=== PATIENT | female | born 1990 | race Caucasian/White ===

== ENCOUNTER → 2017-02-15 | Outpatient (CLI) | payer OTHER ==
[2017-02-15 12:40] LABS: CH 30.4; CHCM 35.5; HCT 41.7 % (34.0-46.0); HDW 2.27; HGB 14.4 gm/dL (11.4-16.0); MCH 29.6 pg (25.0-35.0); MCHC 34.4 g/dL (31.0-37.0); MCV 86.1 fL (80.0-100.0); RBC 4.85 m/uL (3.80-5.40)
[2017-02-15 12:48] LABS: Glucose 98 mg/dL (74-99); Non-African American GFR(MDRD) >60 (>60 ml/min/1.73 sqM)
[2017-02-15 13:20] LABS: Hepatitis B Surface Ag Index 0.05
[2017-02-15 19:20] LABS: Treponemal Ab Non-Reactive (Non-Reactive)
[2017-02-16 05:31] LABS: Toxoplasma Antibody (IgG) <3.0 IU/mL (<7.2)
== END | disposition home or self-care (01) ==
LOC: LABWHC1 11:49
PROVIDERS: ATTEND Obstetrics & Gynecology
DX: O26.811 Pregnancy related exhaustion and fatigue, first trimester (principal); Z3A.00 Weeks of gestation of pregnancy not specified
CPT/HCPCS: 36415; 82565; 82947; 85027; 86762; 86777; 86778; 86780; 86850; 86900; 86901; 87340; 87390

== ENCOUNTER → 2018-05-06 | Outpatient (CLI) | payer OTHER ==
--- NOTE | 2018-05-06 16:21 | XR ---
EXAMINATION TYPE: XR chest 2V DATE OF EXAM: 05/06/2018 COMPARISON: 02/20/2016 HISTORY: Chest pain TECHNIQUE: Frontal and lateral views of the chest are obtained. FINDINGS: There is no focal air space opacity. No evidence for pneumothorax. No pleural effusion. The cardiac silhouette size is within normal limits. The osseous structures are grossly intact. IMPRESSION: 1. No acute cardiopulmonary process.
== END | disposition home or self-care (01) ==
LOC: RADXRYALE 15:28
PROVIDERS: ATTEND Family Medicine
DX: R06.02 Shortness of breath (principal); J45.909 Unspecified asthma, uncomplicated
CPT/HCPCS: 71046

== ENCOUNTER → 2019-08-10 | Outpatient (CLI) | payer OTHER ==
--- NOTE | 2019-08-10 14:34 | US ---
EXAMINATION TYPE: US pelvic complete DATE OF EXAM: 08/10/2019 COMPARISON: NONE CLINICAL HISTORY: D25.9 UTERINE FIBROID. Patient stated uterine fibroids were noted on her OB US TECHNIQUE: Transabdominal (TA). Transabdominal sonographic images of the pelvis were acquired. Date of LMP: 07/21/2019 EXAM MEASUREMENTS: Uterus: 11.8 x 8.5 x 7.5 cm Endometrial Stripe: 1.6 cm Right Ovary: 3.7 x 2.3 x 2.8 cm Left Ovary: 3.4 x 2.6 x 3.5 cm 1. Uterus: anteflexed; multiple uterine probable fibroids imaged with largest in upper myometrium = 6.2 x 6.1 x 5.8cm; exophytic uterine fibroid also seen upper left = 4.3 x 3.5 x 3.0cm; couple of sma ll Nabothian Cysts seen in cervix. 2. Endometrium: small amount of fluid noted within endometrium = 1.5 x 1.4 x 0.6cm 3. Right Ovary: wnl 4. Left Ovary: wnl 5. Bilateral Adnexa: wnl 6. Posterior cul-de-sac: wnl IMPRESSION: 1. Diffusely heterogenous lobulated and enlarged uterus containing multiple probable leiomyomas. The largest measures 6.2 cm. 2. Small amount of fluid within the endometrium could relate to the phase of menses. Endometrial thic kness is upper limits of normal for a premenopausal female.
== END | disposition home or self-care (01) ==
LOC: RADUSWWP 13:27
PROVIDERS: ATTEND Obstetrics & Gynecology
DX: N85.2 Hypertrophy of uterus (principal); D25.9 Leiomyoma of uterus, unspecified
CPT/HCPCS: 76856

== ENCOUNTER 2019-11-04 10:53 | Emergency (ER) | payer OTHER ==
[2019-11-04 11:02] VITALS: RESP 18; TEMP 97.9
--- NOTE | 2019-11-04 11:59 | ED ---
Abdominal Pain HPI - General Chief Complaint: Abdominal Pain Stated Complaint: Abd pain-15 wks pg Time Seen by Provider: 11/04/19 11:32 Source: patient Mode of arrival: ambulatory Limitations: no limitations - History of Present Illness Initial Comments: Patient is a 29-year-old female presenting to the emergency Department with complaints of abdominal pain that started this morning. Patient is currently 15 weeks , . SUPERVISOR FILTRATION is Dr. Hagen although she is seeing a specialist in [place]. Patient states she has history of fibroids which have been growing throughout this so she is currently seeing a specialist to monitor her . Patient states after she woke up this morning and emptied her bladder, she immediately had severe lower mid abdomen pain that made her go onto all fours. Patient rated the pain in 9/10. She states the pain was not moving. States severe pain lasted for a few hours and now has decreased. Patient is still describing pain in the same area but is more tolerable at a 2-3/ 10. Patient denies any vaginal bleeding. She denies recent fever, chills, nausea, vomiting, diarrhea. She denies any history of abdominal surgeries. She denies any chest pain or shortness of breath. She has no other complaints at this time. Upon arrival to the ER, vital signs are stable. - Related Data Home Medications Medication Instructions Recorded Confirmed Aex-Cuar-Mcvqk Acid 1 cap PO DAILY 09/11/17 09/12/17 [-U Capsule (formulary)] Previous Rx's Medication Instructions Recorded Acetaminophen Tab [Tylenol] 650 mg PO Q4HR PRN tab 09/13/17 Ibuprofen [Motrin] 600 mg PO Q6HR PRN #60 tab 09/13/17 Sennosides-Docusate Sodium 2 each PO BID@0800,2000 tab 09/13/17 [Senokot-S] Witch Carmen [Tucks Medicated Pads] 1 each TOPICAL DAILY PRN med..pad 09/13/17 Cephalexin [Keflex] 500 mg PO BID 3 Days #6 cap 11/04/19 Allergies Allergy/AdvReac Type Severity Reaction Status Date / Time albuterol Allergy Rapid Verified 11/04/19 11:02 Heart Rate Review of Systems ROS Statement: Those systems with pertinent positive or pertinent negative responses have been documented in the HPI. ROS Other: All systems not noted in ROS Statement are negative. Past Medical History Past Medical History: No Reported History History of Any Multi-Drug Resistant Organisms: None Reported Past Surgical History: No Surgical Hx Reported Past Anesthesia/Blood Transfusion Reactions: No Reported Reaction Past Psychological History: Anxiety Smoking Status: Never smoker Past Alcohol Use History: None Reported Past Drug Use History: None Reported - Past Family History Mother Additional Family Medical History / Comment(s): Endometriosis General Exam - General Exam Comments Initial Comments: GENERAL: Well-appearing, well-nourished and in no acute distress. HEAD: Atraumatic, normocephalic. EYES: Pupils equal round and reactive to light, extraocular movements intact, sclera anicteric, conjunctiva are normal. ENT: TMs normal, nares patent, oropharynx clear without exudates. Moist mucous membranes. NECK: Normal range of motion, supple without lymphadenopathy or JVD. LUNGS: Breath sounds clear to auscultation bilaterally and equal. No wheezes rales or rhonchi. HEART: Regular rate and rhythm without murmurs, rubs or gallops. ABDOMEN: Soft, nontender, normoactive bowel sounds. No guarding, no rebound. No masses appreciated. : Deferred EXTREMITIES: Normal range of motion, no pitting or edema. No clubbing or cyanosis. NEUROLOGICAL: Cranial nerves II through XII grossly intact. Normal speech, normal gait. PSYCH: Normal mood, normal affect. SKIN: Warm, Dry, normal turgor, no rashes or lesions noted. Limitations: no limitations Course Vital Signs 11/04/19 11/04/19 10:59 13:38 Temperature 97.9 F Pulse Rate 66 50 L Respiratory 18 18 Rate Blood Pressure 102/66 99/59 O2 Sat by Pulse 98 98 Oximetry Medical Decision Making - Medical Decision Making Patient is a 29-year-old female, currently 15 weeks , presenting with lower mid abdominal pain since early this morning. Patient is . SUPERVISOR FILTRATION is Dr. Hagen, and also sees a specialist in [place]. Patient denies any vaginal bleeding. Lab work is unremarkable. Urine shows very mild bacteria. Ultrasound reveals 2 ureter and masses unlikely basis of fibroids. There is a viable IUP approximately 15 weeks, heart rate 152. Patient's pain has been mild during ER stay. I discussed these findings with the patient. She is stable for discharge at this time. She'll follow up with her SUPERVISOR FILTRATION. She'll be given short course of Keflex for asymptomatic bacteremia. She is in agreement with this plan of care. Return parameters were discussed with the patient and she verbalized understanding. Case discussed with Dr. Benítez. - Lab Data Result diagrams: 11/04/19 11:52 11/04/19 11:52 Lab Results 11/04/19 11/04/19 11/04/19 Range/Units 11:52 11:52 11:52 WBC 8.3 (3.8-10.6) k/uL RBC 4.19 (3.80-5.40) m/uL Hgb 11.3 L (11.4-16.0) gm/dL Hct 34.5 (34.0-46.0) % MCV 82.3 (80.0-100.0) fL MCH 27.0 (25.0-35.0) pg MCHC 32.8 (31.0-37.0) g/dL RDW 14.5 (11.5-15.5) % Plt Count 284 (150-450) k/uL Neutrophils % 76 % Lymphocytes % 16 % Monocytes % 6 % Eosinophils % 1 % Basophils % 0 % Neutrophils # 6.3 (1.3-7.7) k/uL Lymphocytes # 1.3 (1.0-4.8) k/uL Monocytes # 0.5 (0-1.0) k/uL Eosinophils # 0.1 (0-0.7) k/uL Basophils # 0.0 (0-0.2) k/uL Sodium 134 L (137-145) mmol/L Potassium 4.1 (3.5-5.1) mmol/L Chloride 105 (98-107) mmol/L Carbon Dioxide 20 L (22-30) mmol/L Anion Gap 9 mmol/L BUN 11 (7-17) mg/dL Creatinine 0.54 (0.52-1.04) mg/dL Est GFR (CKD-EPI)AfAm >90 (>60 ml/min/1.73 sqM) Est GFR (CKD-EPI)NonAf >90 (>60 ml/min/1.73 sqM) Glucose 92 (74-99) mg/dL Calcium 9.2 (8.4-10.2) mg/dL Total Bilirubin 0.3 (0.2-1.3) mg/dL AST 17 (14-36) U/L ALT 11 (4-34) U/L Alkaline Phosphatase 35 L (38-126) U/L Total Protein 6.8 (6.3-8.2) g/dL Albumin 3.8 (3.5-5.0) g/dL Urine Color Colorless Urine Appearance Cloudy H (Clear) Urine pH 7.0 (5.0-8.0) Ur Specific [place] 1.006 (1.001-1.035) Urine Protein Negative (Negative) Urine Glucose (UA) Negative (Negative) Urine Ketones Negative (Negative) Urine Blood Negative (Negative) Urine Nitrite Negative (Negative) Urine Bilirubin Negative (Negative) Urine Urobilinogen <2.0 (<2.0) mg/dL Ur Leukocyte Esterase Negative (Negative) Urine WBC 1 (0-5) /hpf Ur Squamous Epith Cells 8 H (0-4) /hpf Amorphous Sediment Rare H (None) /hpf Urine Bacteria Occasional H (None) /hpf Urine Mucus Rare H (None) /hpf Disposition Clinical Impression: Abdominal pain, Asymptomatic bacteriuria during Disposition: HOME SELF-CARE Condition: Stable Instructions (If sedation given, give patient instructions): Abdominal Pain in (ED) Additional Instructions: Please return to the Emergency Department if symptoms worsen or any other concerns. Follow up with Dr. Hagen as discussed. Take antibiotics as prescribed. Prescriptions: Cephalexin [Keflex] 500 mg PO BID 3 Days #6 cap Is patient prescribed a controlled substance at d/c from ED?: No Referrals: Troy Hylton DO [Primary Care Provider] - 1-2 days Yasemin Hagen DO [Doctor of Osteopathic Medicine] - 1-2 days
[2019-11-04 12:27] LABS: Basophils % (A) 0 %; Eosinophils # (A) 0.1 k/uL (0-0.7); Eosinophils % (A) 1 %; HCT 34.5 % (34.0-46.0); HGB 11.3 gm/dL (11.4-16.0); Lymphocytes # (A) 1.3 k/uL (1.0-4.8); Lymphocytes % (A) 16 %; MCHC 32.8 g/dL (31.0-37.0); MCV 82.3 fL (80.0-100.0); Mean Platelet Volume 7.6; Monocytes # (A) 0.5 k/uL (0-1.0); Monocytes % (A) 6 %; Neutrophils # (A) 6.3 k/uL (1.3-7.7); Neutrophils % (A) 76 %; Platelet Count 284 k/uL (150-450); RBC 4.19 m/uL (3.80-5.40); RDW 14.5 % (11.5-15.5); WBC 8.3 k/uL (3.8-10.6)
[2019-11-04 12:33] LABS: Amorphous Sediment,Urine Rare /hpf; Appearance,Urine Cloudy (Clear); Bacteria,Urine Occasional /hpf; Bilirubin,Urine Negative (Negative); Blood,Urine Negative (Negative); Color,Urine Colorless; Glucose,Urine (UA) Negative (Negative); Ketones,Urine Negative (Negative); Leukocyte Esterase,Urine Negative (Negative); Mucus,Urine Rare /hpf; Nitrite,Urine Negative (Negative); Protein,Urine Negative (Negative); Specific Gravity,Urine 1.006 (1.001-1.035); Squamous Epithelial Cell,Urine 8 /hpf (0-4); Urobilinogen,Urine <2.0 mg/dL (<2.0); WBC,Urine 1 /hpf (0-5)
[2019-11-04 12:36] LABS: ALT 11 U/L (4-34); AST 17 U/L (14-36); African American GFR (CKD) >90 (>60 ml/min/1.73 sqM); Albumin 3.8 g/dL (3.5-5.0); Alkaline Phosphatase 35 U/L (38-126); Anion Gap 9 mmol/L; Blood Urea Nitrogen 11 mg/dL (7-17); Calcium 9.2 mg/dL (8.4-10.2); Carbon Dioxide 20 mmol/L (22-30); Chloride 105 mmol/L (98-107); Glucose 92 mg/dL (74-99); Non-African American GFR(CKD) >90 (>60 ml/min/1.73 sqM); Potassium 4.1 mmol/L (3.5-5.1); Sodium 134 mmol/L (137-145); Total Bilirubin 0.3 mg/dL (0.2-1.3); Total Protein 6.8 g/dL (6.3-8.2)
--- NOTE | 2019-11-04 13:03 | US ---
EXAMINATION TYPE: US OB >= 14 wk fetus DATE OF EXAM: 11/04/2019 COMPARISON: US 08/10/2019 CLINICAL HISTORY: abdominal pain, 15 wks preg TECHNIQUE: Transabdominal (TA) GESTATIONAL AGE / DATING Physician Established: (15 weeks/1 days) EDC: 04/26/2020 Dates by LMP: (15 weeks/1 days) EDC: 04/26/2020 Dates by First Scan: No previous this is first scan ( Dates by Current Scan: (15 weeks/3 days) EDC: 04/24/2020 Beta HCG (if available): Not available at this time SURVEY IUP: Single PLACENTA: Fundal PREVIA: No Previa DILMA: 11.6 cm Normal CERVICAL LENGTH (transabdominal: norm > 3.0cm): 4.1 cm BIOMETRY PRESENTATION: Breech LIE: Longitudinal BPD: 3.1 cm 15 weeks / 6 days HC: 11.6 cm 15 weeks / 5 days AC: 8.7 cm 15 weeks / 0 days FL: 1.7 cm 15 weeks / 1 days ESTIMATED WEIGHT IN GRAMS: 115grams ESTIMATED WEIGHT IN LBS/OZ: 0 lbs. 4 oz. WEIGHT PERCENTAGE BASED ON ESTABLISHED DATES: 36% HC/AC: 1.33 Normal FL/AC: 20% Normal HEART RATE: 152 bpm RHYTHM: Normal Two fibroids visualized, larges measuring 9.8 x 6.0 x 9.2 cm. This previously measured 6.2 x 6.1 x 5 .8cm on 08/10/2019. IMPRESSION: 1. There are 2 uterine masses most likely in the basis of fibroids with the largest measuring 9.8 cm. Previously measured 6.2 cm. 2. Viable intrauterine of approximately 15 weeks 3 days and a heart rate of 152 bpm.
[2019-11-04 13:40] VITALS: BP 99/59; PULSE 50
== END 2019-11-04 13:40 | disposition home or self-care (01) ==
LOC: EC 10:53
DX: O99.89 Other specified diseases and conditions complicating pregnancy, childbirth and the puerperium (principal); R82.71 Bacteriuria; O26.892 Other specified pregnancy related conditions, second trimester; R10.9 Unspecified abdominal pain; Z3A.15 15 weeks gestation of pregnancy; Z88.8 Allergy status to other drugs, medicaments and biological substances
CPT/HCPCS: 36415; 76805; 80053; 81001; 85025; 99284

== ENCOUNTER 2020-04-16 12:45 | Inpatient (IN) | payer OTHER ==
[2020-04-16] MEDS ORDERED: CITRIC ACID-SODIUM CITRATE 15 ML CUP PO ONE (13:08)
[2020-04-16 13:32] LABS: Basophils % (A) 0 %; Eosinophils # (A) 0.1 k/uL (0-0.7); Eosinophils % (A) 1 %; HCT 36.8 % (34.0-46.0); HGB 12.1 gm/dL (11.4-16.0); Lymphocytes # (A) 1.3 k/uL (1.0-4.8); Lymphocytes % (A) 11 %; MCH 27.5 pg (25.0-35.0); MCV 83.5 fL (80.0-100.0); Mean Platelet Volume 6.9; Monocytes # (A) 0.6 k/uL (0-1.0); Monocytes % (A) 5 %; Neutrophils # (A) 9.7 k/uL (1.3-7.7); Neutrophils % (A) 82 %; Platelet Count 347 k/uL (150-450); RBC 4.41 m/uL (3.80-5.40); RDW 14.6 % (11.5-15.5); WBC 11.9 k/uL (3.8-10.6)
[2020-04-16] MEDS ORDERED: ONDANSETRON 4 MG/2 ML VIAL ONE (13:34)
[2020-04-16] MEDS ORDERED: MORPHINE SULFATE (PF) 0.3 MG/0.3 ML SYR ONE (13:34)
[2020-04-16] MEDS ORDERED: OXYTOCIN 10 UNIT/ML 1 ML VIAL ONE (13:34)
[2020-04-16] MEDS ORDERED: KETOROLAC 15 MG/ML 1 ML VIAL ONE (13:34)
[2020-04-16] MEDS ORDERED: PHENYLEPHRINE-0.9% NACL SYG 1 MG/10 ML SYRINGE ONE (13:34)
[2020-04-16] MEDS ORDERED: ONDANSETRON 4 MG/2 ML VIAL IVP PRN (14:27)
[2020-04-16] MEDS ORDERED: ACETAMINOPHEN TAB 325 MG TAB PO PRN (14:27)
[2020-04-16] MEDS ORDERED: METOCLOPRAMIDE 5 MG/ML 2 ML VIAL IVP PRN (14:27)
[2020-04-16] MEDS ORDERED: diphenhydrAMINE 50 MG/ML 1 ML VIAL IVP PRN (14:27)
[2020-04-16] MEDS ORDERED: NALOXONE 0.4 MG/ML 1 ML VIAL IV PRN (14:27)
[2020-04-16] MEDS ORDERED: SIMETHICONE 80 MG CHEWABLE PO PRN (14:27)
[2020-04-16] MEDS ORDERED: diphenhydrAMINE 25 MG CAP PO PRN (14:27)
[2020-04-16] MEDS ORDERED: ZOLPIDEM 5 MG TAB PO PRN (14:27)
[2020-04-16] MEDS ORDERED: LANOLIN CREAM 5 GM TUBE TOPICAL PRN (14:27)
[2020-04-16] MEDS ORDERED: OXYTOCIN 20 UNITS/1000 ML NS 1,000 ML IV SCH (14:30)
--- NOTE | 2020-04-16 14:42 | P.HPOB ---
History of Present Illness H&P Date: 04/16/20 Chief Complaint: Contractions This patient is a pleasant 29-year-old 2 para 1 female estimated date of confinement 04/26/2020 estimated gestational age 38-3/7 weeks who began having contractions earlier today presented to labor and delivery in active labor. Patient's is complicated by large uterine fibroids and history of prior fourth degree laceration. She has discussed route of delivery with her primary wet plant operator, Dr. Hagen, and they have made the decision to proceed with section for delivery. Patient was evaluated by maternal medicine during this as well. Patient was scheduled for a primary section next week. Patient is now 7 cm dilated in active labor. I did rediscuss route of delivery and she wishes to proceed with section Review of Systems Genitourinary: Reports Menstruation: Reports amenorrhea Past Medical History Additional Past Medical History / Comment(s): Uterine fibroids; previous vaginal delivery complicated by fourth degree laceration History of Any Multi-Drug Resistant Organisms: None Reported Past Surgical History: No Surgical Hx Reported Past Anesthesia/Blood Transfusion Reactions: No Reported Reaction Past Psychological History: Anxiety Past Alcohol Use History: None Reported Past Drug Use History: None Reported - Past Family History Mother Family Medical History: Coronary Artery Disease (CAD), Diabetes Mellitus Additional Family Medical History / Comment(s): Endometriosis Medications and Allergies Home Medications Medication Instructions Recorded Confirmed Type Qdm-Kemy-Bxcvq Acid 1 cap PO DAILY 09/11/17 09/12/17 History [-U Capsule (formulary)] Acetaminophen Tab [Tylenol] 650 mg PO Q4HR PRN tab 09/13/17 Rx Ibuprofen [Motrin] 600 mg PO Q6HR PRN #60 tab 09/13/17 Rx Sennosides-Docusate Sodium 2 each PO BID@0800,2000 tab 09/13/17 Rx [Senokot-S] witch Evelyn [Tucks Medicated Pads] 1 each TOPICAL DAILY PRN med..pad 09/13/17 Rx Cephalexin [Keflex] 500 mg PO BID 3 Days #6 cap 11/04/19 Rx Allergies Allergy/AdvReac Type Severity Reaction Status Date / Time albuterol AdvReac Rapid Verified 04/16/20 13:07 Heart Rate Exam Intake and Output 04/15/20 04/16/20 04/16/20 22:59 06:59 14:59 Other: Weight 98.883 kg - OBG Physical Exam Abdomen: bowel sounds normal, no diffuse tenderness, no bruit present, no guarding noted, no hepatomegaly, no splenomegaly, no mass Vulva: both: normal Cervix: no lesion (On admission patient's cervix is 6-7 cm dilated), no discharge Uterus: enlarged Results blood work shows she is A positive, rubella immune, RPR is nonreactive, hepatitis B is negative, HIV is nonreactive, B strep was negative, ultrasounds showed normal anatomy. She does have a large 9+ centimeter posterior fibroid and also a fibroid on the left side that's about 3-4 cm. Result Diagrams: 04/16/20 13:15 Abnormal Lab Results - Last 24 Hours (Table) 04/16/20 Range/Units 13:15 WBC 11.9 H (3.8-10.6) k/uL Neutrophils # 9.7 H (1.3-7.7) k/uL Assessment and Plan Assessment: This is a pleasant 29-year-old 2 para 1 female 38-3/7 weeks gestation in active labor with large uterine fibroids and previous fourth degree laceration requesting section for delivery. Plan is immediate delivery by primary section. Prior to the surgery I did discuss with the patient and her the surgery and risks. She understands all surgery has risks of infection or bleeding. She understands due to her fibroids she is at increased risk of bleeding. She also understands risk of injury to bowel bladder, or other organs. All the patient's questions are answered written consent is obtained. (1) 38 weeks gestation of Current Visit: Yes Status: Acute Code(s): Z3A.38 - 38 WEEKS GESTATION OF SNOMED Code(s): 13718017 (2) Active labor Current Visit: Yes Status: Acute Code(s): OAW1356 - SNOMED Code(s): 780080708 (3) delivery due to previous obstetrical trauma, delivered, current hospitalization Current Visit: Yes Status: Acute Code(s): O34.90 - MATERNAL CARE FOR ABNLT OF PELVIC ORGAN, UNSP, UNSP TRI SNOMED Code(s): 901452483
--- NOTE | 2020-04-16 14:50 | P.OP ---
Date of Procedure: 04/16/20 Preoperative Diagnosis: #1: 38-3/7 week . #2: Large uterine fibroids/multiple. #3: Previous fourth degree laceration requesting section for delivery. #4: Active labor Postoperative Diagnosis: Same Procedure(s) Performed: Primary low transverse section Anesthesia: spinal Surgeon: Kavin Lund [employer] #1: Michelle Clark Estimated Blood Loss (ml): 1,000 Pathology: other (Placenta) Condition: stable Disposition: observation Indications for Procedure: Please see dictated H&P for intimate details of this patient's admission. Brief summary this is a pleasant 29-year-old 2 para 1 female 38-1/2 weeks gestation with previous fourth degree laceration requesting section for delivery. Patient also is known large uterine fibroids. Patient I and her have discussed the surgery and risks and risks of infection, bleeding, possible injury to bowel, bladder, vessels, and/or other organs. All the patient's questions are answered written consent is obtained. Operative Findings: This patient had a vigorous viable female Apgars were 8 and 9 delivery time is 1348 hrs. Infant has spontaneous respirations and good cry and grossly appears normal. Patient had a very large 10 cm posterior fibroid. She also had what appeared to be a 3-4 cm left lateral fibroid. In the anterior lower uterine segment. I was unable to externalize the uterus and completely visualize the rest of her fibroids however there were several other palpable fibroids on the posterior fundal area. Her fallopian tubes and ovaries appeared normal Description of Procedure: This patient has a Pete catheter placed to straight drain. She is subsequently taken to the operating room where she sat up and spinal anesthetic is administered without incident. With an adequate level of anesthesia she has abdominal prep and drape. Scalpels and taken a Pfannenstiel skin incision is then made. A second scalpel is taken down the fascia and the fascia scored with scalpel. Fascial incision extended bilaterally using the Marion scissors. Fascia is then dissected sharply off the rectus muscles. Rectus muscles are the peritoneum was identified and entered sharply. The peritoneal incision is extended superior and inferior without difficulty. Bladder blade is then placed. At this time there is noted to be a fibroid in the lower uterine segment of the left side. Bladder peritoneum was sharply dissected off the lower uterine segment. I then selected area of the lower uterine segment that appears to be free of fibroids and make an incision with the scalpel. This is a low transverse uterine incision. Hemostat is then used to enter the uterine cavity lightly for clear fluid. Incision is then extended bluntly. Infant's head is then gently guided through the incision with fundal pressure. Mouth and nares are bulb suctioned. There is no evidence of a nuchal cord. With gentle fundal pressure we then deliver the rest this 's body. This is a vigorous viable female Apgars are 8 and 9 delivery time is 1348 hrs. After delivery of the the umbilical cords doubly clamped and cut appears to be trivascular. The placenta is then manually extracted intact. The placenta is up in the fundal region and anteriorly. There is a large posterior fibroid. There is also a fibroid on the left lower uterine segment side as well. I did try to externalize the uterus however due to its large size this was not able to be done. With additional retractors we were easily able to visualize the lower uterine uterine segment and the incision and this was demarcated with Huffman clamps. Excess tissue is removed from the uterine cavity. Uterine incision is then closed using 0 Vicryl running locked fashion. There is an area of oozing on the left side where there is a fibroid implanted over the incision. I did put several [id number] stitches of 0 Vicryl there for excellent hemostasis. With this completed the tubes and ovaries were inspected. Excess fluid was removed from the abdomen and pelvis. Prolonged observation shows good hemostasis. The parietal peritoneum was then identified and closed using 0 Vicryl running fashion. Rectus muscles reapproximated in 0 Vicryl interrupted fashion. Fascial incision is then closed using 0 PDS. Fascial incision is intact and hemostatic. Subcutaneous tissues and closed using a 3-0 Vicryl. Skin is and closed using rios. All counts are correct 3. There are no complications. Infant and mother will be watched in the birthing suite.
[2020-04-16] MEDS: LACTATED RINGERS 1,000 ML IV SCH (18:12)
[2020-04-16] MEDS: KETOROLAC 15 MG/ML 1 ML VIAL IVP PRN (19:56)
[2020-04-16] MEDS: SENNOSIDES-DOCUSATE SODIUM 1 EACH TAB PO SCH (20:20)
[2020-04-17] MEDS: LACTATED RINGERS 1,000 ML IV SCH ×2 (02:04→06:45)
[2020-04-17] MEDS: KETOROLAC 15 MG/ML 1 ML VIAL IVP PRN ×2 (02:05→07:56)
[2020-04-17 07:28] LABS: Basophils % (A) 0 %; Eosinophils % (A) 0 %; HCT 26.4 % (34.0-46.0); Lymphocytes # (A) 0.9 k/uL (1.0-4.8); Lymphocytes % (A) 7 %; MCH 26.6 pg (25.0-35.0); MCHC 31.4 g/dL (31.0-37.0); MCV 84.7 fL (80.0-100.0); Mean Platelet Volume 7.2; Monocytes # (A) 0.8 k/uL (0-1.0); Monocytes % (A) 6 %; Neutrophils # (A) 11.6 k/uL (1.3-7.7); Neutrophils % (A) 86 %; Platelet Count 266 k/uL (150-450); RBC 3.12 m/uL (3.80-5.40); WBC 13.4 k/uL (3.8-10.6)
[2020-04-17] MEDS: SENNOSIDES-DOCUSATE SODIUM 1 EACH TAB PO SCH ×2 (07:55→18:58)
[2020-04-17 08:10] LABS: HGB 8.3 gm/dL (11.4-16.0)
--- NOTE | 2020-04-17 08:17 | P.PNOBGPC ---
Subjective - Subjective Patient reports: Reports appetite normal, Reports voiding normally, Reports pain well controlled, Reports ambulating normally : doing well Objective - Vital Signs Latest vital signs: Vital Signs Temp Pulse Resp BP Pulse Ox 04/17/20 08:00 98.2 F 78 16 115/60 98 04/17/20 04:00 98.3 F 73 16 121/69 97 04/17/20 00:00 98.2 F 69 16 98/57 95 04/16/20 21:39 70 16 103/64 97 04/16/20 20:00 97.8 F 75 16 95/55 97 04/16/20 16:20 96.1 F L 67 16 108/52 04/16/20 15:50 66 16 102/57 99 04/16/20 15:20 72 16 105/52 96 04/16/20 15:05 70 16 108/55 97 04/16/20 14:50 69 16 100/53 100 04/16/20 14:35 74 16 104/50 98 04/16/20 14:20 57 L 16 124/56 100 04/16/20 13:19 97.7 F 78 18 129/77 100 Intake and Output 04/16/20 04/17/20 04/17/20 22:59 06:59 14:59 Output Total 550 300 600 Balance -550 -300 -600 Output: Urine 550 300 600 Other: # Voids 1 1 - Exam Lungs: bilateral: normal Chest: Normal S1, Normal S2 Extremities: Present: normal Abdomen: Present: normal appearance, soft. Absent: distention, tenderness Incision: Present: normal, dry, intact Uterus: Present: normal, firm - Labs Labs: Abnormal Lab Results - Last 24 Hours (Table) 04/16/20 04/17/20 Range/Units 13:15 06:57 WBC 11.9 H 13.4 H (3.8-10.6) k/uL RBC 3.12 L (3.80-5.40) m/uL Hgb 8.3 L D (11.4-16.0) gm/dL Hct 26.4 L (34.0-46.0) % Neutrophils # 9.7 H 11.6 H (1.3-7.7) k/uL Lymphocytes # 0.9 L (1.0-4.8) k/uL Assessment and Plan Assessment: Post operative day #1. Patient is resting without complaints. Vital signs are stable and she is afebrile. Incision is intact and dry. Patient is having normal lochia. CBC this morning shows her hemoglobin to be 8.3. Patient was dizzy last evening but this has gone away. She is urinating without difficulty and she is ambulating with assistance. Patient is tolerating a clear diet. My impression this is a normal postoperative course, complicated by postoperative anemia which is expected due to the patient's fibroids noted at the time of surgery. Patient this time is for the most part feeling well therefore we'll just begin iron therapy. I am going to repeat a CBC tomorrow but it appears that she definitely has stabilized. Plan we'll allow the patient to shower today and advanced to regular diet. Continue routine postoperative care. (1) 38 weeks gestation of Current Visit: Yes Status: Acute Code(s): Z3A.38 - 38 WEEKS GESTATION OF SNOMED Code(s): 40504725 (2) Active labor Current Visit: Yes Status: Acute Code(s): JKL0104 - SNOMED Code(s): 459916430 (3) delivery due to previous obstetrical trauma, delivered, current hospitalization Current Visit: Yes Status: Acute Code(s): O34.90 - MATERNAL CARE FOR ABNLT OF PELVIC ORGAN, UNSP, UNSP TRI SNOMED Code(s): 883583016
[2020-04-17] MEDS: IRON AG/C/B12/CA/SUC.ACID/STOM 1 EACH TAB PO SCH (08:58)
[2020-04-17] MEDS: IBUPROFEN 600 MG TAB PO PRN ×2 (14:07→21:27)
[2020-04-17] MEDS: HYDROcodone/APAP 5-325MG 1 EACH TAB PO PRN (18:57)
[2020-04-17] MEDS ORDERED: SERTRALINE 50 MG TAB PO SCH (21:00)
[2020-04-18] MEDS: HYDROcodone/APAP 5-325MG 1 EACH TAB PO PRN ×2 (00:04→06:07)
[2020-04-18] MEDS: IBUPROFEN 600 MG TAB PO PRN ×2 (03:57→09:53)
[2020-04-18 07:20] LABS: Basophils % (A) 0 %; Eosinophils # (A) 0.1 k/uL (0-0.7); Eosinophils % (A) 1 %; HGB 8.8 gm/dL (11.4-16.0); Lymphocytes # (A) 1.2 k/uL (1.0-4.8); Lymphocytes % (A) 9 %; MCH 26.9 pg (25.0-35.0); MCHC 32.6 g/dL (31.0-37.0); MCV 82.4 fL (80.0-100.0); Mean Platelet Volume 8.4; Monocytes # (A) 0.9 k/uL (0-1.0); Monocytes % (A) 6 %; Neutrophils # (A) 11.5 k/uL (1.3-7.7); Neutrophils % (A) 83 %; Platelet Count 295 k/uL (150-450); RBC 3.28 m/uL (3.80-5.40); RDW 15.2 % (11.5-15.5); WBC 13.9 k/uL (3.8-10.6)
[2020-04-18] MEDS: LACTATED RINGERS 1,000 ML IV SCH (07:29)
[2020-04-18] MEDS: SENNOSIDES-DOCUSATE SODIUM 1 EACH TAB PO SCH (07:45)
[2020-04-18] MEDS: IRON AG/C/B12/CA/SUC.ACID/STOM 1 EACH TAB PO SCH (07:45)
[2020-04-18 07:57] VITALS: BP 118/69; PULSE 82; RESP 18; TEMP 98.2
--- NOTE | 2020-04-18 09:20 | P.DS ---
Providers Date of admission: 04/16/20 13:08 Expected date of discharge: 04/18/20 Attending physician: Yasemin Hagen Primary care physician: Stated None Hospital Course: 30-year-old female 2 para 1 at 38-3/7 weeks who presented in active labor and underwent a primary low transverse section with delivery of a viable female on 04/16/2020 with scores of 8 at 1 minute and 9 at 5 minutes and weight of 6 lbs. 9 oz. The reason for her was a history of a fourth degree laceration and large uterine fibroids. Postoperatively she did have a drop in her hemoglobin that was determined to be stable by postoperative day #2. She has been ambulating without difficulty. She is passing flatus but no bowel movement yet. Lochia is very minimal. She is breast-feeding. Vital signs are stable. Abdomen is soft with fundus firm and nontender. Extremities show negative Homans. Impression is status post right Kimberley low transverse section postoperative day #2. Plan is to discharge home today. Routine postoperative and instructions are given. She will be given a prescription for ibuprofen and [place]. She has signed a opioid start talking Cha has been counseled regarding proper opioid use. She is advised follow-up in the office in approximately 1 week. She is advised to call the office if she has any further questions or concerns prior to her appointment time. She does have a breast pump at home. Procedures: Primary low transverse section on 04/16/2020. Patient Condition at Discharge: Stable Plan - Discharge Summary New Discharge Prescriptions: New Ibuprofen [Motrin] 600 mg PO Q6HR PRN #60 tab PRN Reason: Mild Pain Or Fever >= 100.5 Iron Ag/C/B12/Ca/Suc.acid/Stom [Multigen] 1 each PO DAILY tab HYDROcodone/APAP 5-325MG [[place] 5-325] 1 each PO Q4HR PRN #28 tab PRN Reason: Moderate Pain Continue Ncr-Mtax-Qipva Acid [-U Capsule (formulary)] 1 cap PO DAILY Acetaminophen Tab [Tylenol] 650 mg PO Q4HR PRN tab PRN Reason: Mild Pain Or Fever >= 100.5 No Action Ibuprofen [Motrin] 600 mg PO Q6HR PRN #60 tab PRN Reason: Mild Pain Or Fever >= 100.5 Sennosides-Docusate Sodium [Senokot-S] 2 each PO BID@0800,2000 tab witch Evelyn [Tucks Medicated Pads] 1 each TOPICAL DAILY PRN med..pad PRN Reason: Perineal Discomfort Discharge Medication List Qdg-Akev-Szwzs Acid [-U Capsule (formulary)] 1 cap PO DAILY 09/11/17 [History] Acetaminophen Tab [Tylenol] 650 mg PO Q4HR PRN tab 09/13/17 [Rx] Ibuprofen [Motrin] 600 mg PO Q6HR PRN #60 tab 09/13/17 [Rx] Sennosides-Docusate Sodium [Senokot-S] 2 each PO BID@0800,2000 tab 09/13/17 [Rx] witch Evelyn [Tucks Medicated Pads] 1 each TOPICAL DAILY PRN med..pad 09/13/17 [Rx] HYDROcodone/APAP 5-325MG [[place] 5-325] 1 each PO Q4HR PRN #28 tab 04/18/20 [Rx] Ibuprofen [Motrin] 600 mg PO Q6HR PRN #60 tab 04/18/20 [Rx] Iron Ag/C/B12/Ca/Suc.acid/Stom [Multigen] 1 each PO DAILY tab 04/18/20 [Rx] Follow up Appointment(s)/Referral(s): Yasemin Hagen DO [Doctor of Osteopathic Medicine] - 1 Week Activity/Diet/Wound Care/Special Instructions: Instructions 1. Do not begin any exercise program for 3 weeks. 2. Do not resume sexual relations for 3 weeks or longer if uncomfortable. 3. You may take tub baths or showers at any time. 4. You may use tampons if desired after 3 weeks. 5. Keep the area of episiotomy (stitches) clean and dry. 6. If you are not nursing, wear a good fitting, supportive bra during the day and limit fluid intake for at least 1 week to prevent breast engorgement. 7. Call the office, [phone], within the next week to make appointment for your 6 week checkup if it has not already been made. 8. Report any of the following occurrences to the doctor promptly: a. Heavy, excessive bleeding b. Chills, fever c. Burning or frequency of urination d. Pain or redness and breasts if nursing e. Increasing pain or swelling in episiotomy (stitches). In addition to the above instructions, the following additional should be followed: 1. No heavy lifting or straining (exercising) until after 6 week checkup. 2. Keep abdominal incision clean and dry: You may wear a dressing if more comfortable. 3. Make office appointment for 10 days after going home or as instructed by her doctor. Discharge Disposition: HOME SELF-CARE
== END 2020-04-18 10:45 | disposition home or self-care (01) | DRG 788 ==
LOC: FBPOP 12:45 → 4FBP 13:08
PROVIDERS: ADMIT Obstetrics & Gynecology; ATTEND Obstetrics & Gynecology
PROC: 10D00Z1 Extraction of Products of Conception, Low, Open Approach (ICD-10-PCS; principal; 2020-04-16 13:45)
DX: O34.13 Maternal care for benign tumor of corpus uteri, third trimester (principal); D25.9 Leiomyoma of uterus, unspecified; O99.02 Anemia complicating childbirth; D64.9 Anemia, unspecified; R42 Dizziness and giddiness; O75.89 Other specified complications of labor and delivery; Z37.0 Single live birth; Z3A.38 38 weeks gestation of pregnancy; Z87.828 Personal history of other (healed) physical injury and trauma; Z79.899 Other long term (current) drug therapy; Z88.8 Allergy status to other drugs, medicaments and biological substances; Z83.3 Family history of diabetes mellitus; Z82.49 Family history of ischemic heart disease and other diseases of the circulatory system; Z84.2 Family history of other diseases of the genitourinary system
CPT/HCPCS: 59025; 85025; 86850; 86900; 86901; 99213

== ENCOUNTER 2020-05-31 15:20 | Observation (INO) | payer OTHER ==
[2020-05-31] MEDS ORDERED: HYDROcodone/APAP 5-325MG 1 EACH TAB PO STA (16:07)
[2020-05-31] MEDS ORDERED: SODIUM CHLORIDE 0.9% 1,000 ML IV ONE (16:07)
--- NOTE | 2020-05-31 16:33 | ED ---
Abdominal Pain HPI - General Chief Complaint: Abdominal Pain Stated Complaint: Pelvic Pain 6 weeks Time Seen by Provider: 05/31/20 15:25 Source: patient Mode of arrival: wheelchair Limitations: no limitations - History of Present Illness Initial Comments: Patient is a 30-year-old female who is approximately 6 weeks . She had a performed by Dr. Hagen on April 16. States that after her delivery she had some vaginal bleeding and discharge with a foul order. She saw Dr. Hagen placed her on antibiotics approximately 4-5 weeks ago. She did finish the course. States that she has had persistent brown discharge which appeared to improve however 3 days ago became heavier and associated with suprapubic cramping. Also admits to a foul order. Denies concern for sexually transmitted infection. No dysuria, hematuria or difficult voiding. Past bowel movement was this morning and was normal in color and consistency. Denies diarrhea, melenic stools or hematochezia. Patient has a history of uterine fibroids however states that she had normal mental cycles previous to this , one a month with only mild pain. She denies any nausea or vomiting. No fevers or chills. She did call Dr. Hagen office who placed her on a course of flagyl starting yesterday. Pain became so severe that the patient decided to come to the ER for evaluation - Related Data Home Medications Medication Instructions Recorded Confirmed Blu-Clhf-Ceohg Acid 1 cap PO DAILY 09/11/17 05/31/20 [-U Capsule (formulary)] Acetaminophen [Tylenol] 1,000 mg PO ONCE 05/31/20 05/31/20 Previous Rx's Medication Instructions Recorded Amoxic-Pot Clav 875-125Mg 1 tab PO BID 10 Days #20 tab 06/02/20 [Augmentin 875-125] HYDROcodone/APAP 5-325MG [[place] 1 each PO Q4HR PRN #10 tab 06/02/20 5-325] Sertraline [Zoloft] 50 mg PO HS tab 06/02/20 metroNIDAZOLE [Flagyl] 500 mg PO Q12H tab 06/02/20 Allergies Allergy/AdvReac Type Severity Reaction Status Date / Time albuterol AdvReac Rapid Verified 05/31/20 17:45 Heart Rate Review of Systems ROS Statement: Those systems with pertinent positive or pertinent negative responses have been documented in the HPI. ROS Other: All systems not noted in ROS Statement are negative. Past Medical History Past Medical History: No Reported History Additional Past Medical History / Comment(s): Uterine fibroids; previous vagin al delivery complicated by fourth degree laceration History of Any Multi-Drug Resistant Organisms: None Reported Past Surgical History: No Surgical Hx Reported Past Anesthesia/Blood Transfusion Reactions: No Reported Reaction Past Psychological History: Anxiety Smoking Status: Never smoker Past Alcohol Use History: None Reported Past Drug Use History: None Reported - Past Family History Brother(s) Family Medical History: Asthma Additional Family Medical History / Comment(s): 2 years ago General Exam Limitations: no limitations General appearance: alert, in no apparent distress Head exam: Present: atraumatic, normocephalic, normal inspection Eye exam: Present: normal appearance, PERRL, EOMI. Absent: scleral icterus, conjunctival injection, periorbital swelling ENT exam: Present: normal exam, mucous membranes moist Neck exam: Present: normal inspection. Absent: tenderness, meningismus, lymphadenopathy Respiratory exam: Present: normal lung sounds bilaterally. Absent: respiratory distress, wheezes, rales, rhonchi, stridor GI/Abdominal exam: Present: tenderness (suprapubic). Absent: guarding, rebound External exam: Absent: erythema, swelling Speculum exam: Present: vaginal discharge, other (area of cervix identified which reveals dusky, ragged tissue. Normal cervical tissue not identified. No retained foreign bodies. No vaginal bleeding) Course Vital Signs 05/31/20 05/31/20 05/31/20 15:25 17:52 20:00 Temperature 98.4 F Pulse Rate 90 61 64 Respiratory 18 18 18 Rate Blood Pressure 151/77 122/75 125/80 O2 Sat by Pulse 98 97 97 Oximetry - Reevaluation(s) Reevaluation #1: Spoke with Dr. Langford who is coming in to see the patient 05/31/20 18:37 Medical Decision Making - Medical Decision Making Upon arrival patient was placed into room 21. A thorough history and physical exam was performed. Peripheral IV was obtained. Patient was given a liter of saline followed by 100 mL/h. She was given [place] 5 for pain control as well as a dose of Zofran. Laboratory studies were conducted an ultrasound was performed. Patient was given a dose of Zosyn. Laboratory studies were reviewed and demonstrated a white count 13.9. Urinalysis is grossly positive for infection. 29 red blood cells, 109 white blood cells and many white blood cell clumps. Pelvic ultrasound demonstrates endometrium difficult to evaluate because of multiple fibroids. Minimal complex fluid consistent with blood clot in the endometrial cavity. No adnexal mass. No evidence of ovarian torsion. Pelvic exam was performed and demonstrates abnormal, dusky tissue adjacent to the patient's cervix. It is difficult to visualize the patient's cervix. Because of this I did call discuss the case with Dr. Langford. He does present to the emergency department and evaluates the patient himself. He does agree to antibiotics and pain control. Patient will be made nothing by mouth at midnight for possible D&C tomorrow. Patient is updated in regards to her care and agrees to treatment plan. Patient is currently awaiting a bed on the floor - Lab Data Result diagrams: 06/01/20 06:37 06/01/20 06:37 Lab Results 05/31/20 05/31/20 05/31/20 Range/Units 16:13 16:13 16:13 WBC 13.9 H (3.8-10.6) k/uL RBC 4.46 (3.80-5.40) m/uL Hgb 11.6 (11.4-16.0) gm/dL Hct 35.1 (34.0-46.0) % MCV 78.7 L (80.0-100.0) fL MCH 26.0 (25.0-35.0) pg MCHC 33.0 (31.0-37.0) g/dL RDW 14.6 (11.5-15.5) % Plt Count 431 (150-450) k/uL MPV 6.7 Neutrophils % 81 % Lymphocytes % 9 % Monocytes % 7 % Eosinophils % 2 % Basophils % 0 % Neutrophils # 11.3 H (1.3-7.7) k/uL Lymphocytes # 1.2 (1.0-4.8) k/uL Monocytes # 1.0 (0-1.0) k/uL Eosinophils # 0.3 (0-0.7) k/uL Basophils # 0.1 (0-0.2) k/uL PT 9.8 (9.0-12.0) sec INR 0.9 (<1.2) APTT 24.7 (22.0-30.0) sec Sodium (137-145) mmol/L Potassium (3.5-5.1) mmol/L Chloride (98-107) mmol/L Carbon Dioxide (22-30) mmol/L Anion Gap mmol/L BUN (7-17) mg/dL Creatinine (0.52-1.04) mg/dL Est GFR (CKD-EPI)AfAm (>60 ml/min/1.73 sqM) Est GFR (CKD-EPI)NonAf (>60 ml/min/1.73 sqM) Glucose (74-99) mg/dL Calcium (8.4-10.2) mg/dL Total Bilirubin (0.2-1.3) mg/dL AST (14-36) U/L ALT (4-34) U/L Alkaline Phosphatase (38-126) U/L Total Protein (6.3-8.2) g/dL Albumin (3.5-5.0) g/dL Urine Color Light Yellow Urine Appearance Cloudy H (Clear) Urine pH 6.0 (5.0-8.0) Ur Specific [place] 1.013 (1.001-1.035) Urine Protein Negative (Negative) Urine Glucose (UA) Negative (Negative) Urine Ketones Negative (Negative) Urine Blood Large H (Negative) Urine Nitrite Negative (Negative) Urine Bilirubin Negative (Negative) Urine Urobilinogen <2.0 (<2.0) mg/dL Ur Leukocyte Esterase Large H (Negative) Urine RBC 29 H (0-5) /hpf Urine WBC 109 H (0-5) /hpf Urine WBC Clumps Many H (None) /hpf Ur Squamous Epith Cells <1 (0-4) /hpf Urine Bacteria Rare H (None) /hpf Urine Mucus Rare H (None) /hpf Urine HCG, Qual (Not Detectd) Chlamydia Source Chlamydia DNA (PCR) (Neg,Equiv) N. gonorrhoeae Source N.gonorrhoeae DNA Probe (Neg,Equiv) Trichomonas Ag (Rapid) (Negative) 05/31/20 05/31/20 05/31/20 Range/Units 16:13 16:13 16:13 WBC (3.8-10.6) k/uL RBC (3.80-5.40) m/uL Hgb (11.4-16.0) gm/dL Hct (34.0-46.0) % MCV (80.0-100.0) fL MCH (25.0-35.0) pg MCHC (31.0-37.0) g/dL RDW (11.5-15.5) % Plt Count (150-450) k/uL MPV Neutrophils % % Lymphocytes % % Monocytes % % Eosinophils % % Basophils % % Neutrophils # (1.3-7.7) k/uL Lymphocytes # (1.0-4.8) k/uL Monocytes # (0-1.0) k/uL Eosinophils # (0-0.7) k/uL Basophils # (0-0.2) k/uL PT (9.0-12.0) sec INR (<1.2) APTT (22.0-30.0) sec Sodium 138 (137-145) mmol/L Potassium 4.2 (3.5-5.1) mmol/L Chloride 106 (98-107) mmol/L Carbon Dioxide 25 (22-30) mmol/L Anion Gap 7 mmol/L BUN 13 (7-17) mg/dL Creatinine 0.74 (0.52-1.04) mg/dL Est GFR (CKD-EPI)AfAm >90 (>60 ml/min/1.73 sqM) Est GFR (CKD-EPI)NonAf >90 (>60 ml/min/1.73 sqM) Glucose 105 H (74-99) mg/dL Calcium 9.8 (8.4-10.2) mg/dL Total Bilirubin 0.4 (0.2-1.3) mg/dL AST 28 (14-36) U/L ALT 24 (4-34) U/L Alkaline Phosphatase 88 (38-126) U/L Total Protein 7.6 (6.3-8.2) g/dL Albumin 4.3 (3.5-5.0) g/dL Urine Color Urine Appearance (Clear) Urine pH (5.0-8.0) Ur Specific [place] (1.001-1.035) Urine Protein (Negative) Urine Glucose (UA) (Negative) Urine Ketones (Negative) Urine Blood (Negative) Urine Nitrite (Negative) Urine Bilirubin (Negative) Urine Urobilinogen (<2.0) mg/dL Ur Leukocyte Esterase (Negative) Urine RBC (0-5) /hpf Urine WBC (0-5) /hpf Urine WBC Clumps (None) /hpf Ur Squamous Epith Cells (0-4) /hpf Urine Bacteria (None) /hpf Urine Mucus (None) /hpf Urine HCG, Qual Not Detected (Not Detectd) Chlamydia Source Chlamydia DNA (PCR) (Neg,Equiv) N. gonorrhoeae Source N.gonorrhoeae DNA Probe (Neg,Equiv) Trichomonas Ag (Rapid) Negative (Negative) 05/31/20 Range/Units 16:13 WBC (3.8-10.6) k/uL RBC (3.80-5.40) m/uL Hgb (11.4-16.0) gm/dL Hct (34.0-46.0) % MCV (80.0-100.0) fL MCH (25.0-35.0) pg MCHC (31.0-37.0) g/dL RDW (11.5-15.5) % Plt Count (150-450) k/uL MPV Neutrophils % % Lymphocytes % % Monocytes % % Eosinophils % % Basophils % % Neutrophils # (1.3-7.7) k/uL Lymphocytes # (1.0-4.8) k/uL Monocytes # (0-1.0) k/uL Eosinophils # (0-0.7) k/uL Basophils # (0-0.2) k/uL PT (9.0-12.0) sec INR (<1.2) APTT (22.0-30.0) sec Sodium (137-145) mmol/L Potassium (3.5-5.1) mmol/L Chloride (98-107) mmol/L Carbon Dioxide (22-30) mmol/L Anion Gap mmol/L BUN (7-17) mg/dL Creatinine (0.52-1.04) mg/dL Est GFR (CKD-EPI)AfAm (>60 ml/min/1.73 sqM) Est GFR (CKD-EPI)NonAf (>60 ml/min/1.73 sqM) Glucose (74-99) mg/dL Calcium (8.4-10.2) mg/dL Total Bilirubin (0.2-1.3) mg/dL AST (14-36) U/L ALT (4-34) U/L Alkaline Phosphatase (38-126) U/L Total Protein (6.3-8.2) g/dL Albumin (3.5-5.0) g/dL Urine Color Urine Appearance (Clear) Urine pH (5.0-8.0) Ur Specific [place] (1.001-1.035) Urine Protein (Negative) Urine Glucose (UA) (Negative) Urine Ketones (Negative) Urine Blood (Negative) Urine Nitrite (Negative) Urine Bilirubin (Negative) Urine Urobilinogen (<2.0) mg/dL Ur Leukocyte Esterase (Negative) Urine RBC (0-5) /hpf Urine WBC (0-5) /hpf Urine WBC Clumps (None) /hpf Ur Squamous Epith Cells (0-4) /hpf Urine Bacteria (None) /hpf Urine Mucus (None) /hpf Urine HCG, Qual (Not Detectd) Chlamydia Source Vagina Chlamydia DNA (PCR) Negative (Neg,Equiv) N. gonorrhoeae Source Vagina N.gonorrhoeae DNA Probe Negative (Neg,Equiv) Trichomonas Ag (Rapid) (Negative) Disposition Clinical Impression: S/P , Pelvic pain, UTI (urinary tract infection) Disposition[facility] Condition: Stable Is patient prescribed a controlled substance at d/c from ED?: No Decision to Admit Reason: Admit from EC Decision Date: 05/31/20 Decision Time: 19:58
[2020-05-31 17:08] LABS: Basophils # (A) 0.1 k/uL (0-0.2); Basophils % (A) 0 %; Eosinophils # (A) 0.3 k/uL (0-0.7); Eosinophils % (A) 2 %; HCT 35.1 % (34.0-46.0); HGB 11.6 gm/dL (11.4-16.0); Lymphocytes # (A) 1.2 k/uL (1.0-4.8); Lymphocytes % (A) 9 %; MCV 78.7 fL (80.0-100.0); Mean Platelet Volume 6.7; Monocytes % (A) 7 %; Neutrophils # (A) 11.3 k/uL (1.3-7.7); Neutrophils % (A) 81 %; Platelet Count 431 k/uL (150-450); RBC 4.46 m/uL (3.80-5.40); RDW 14.6 % (11.5-15.5); WBC 13.9 k/uL (3.8-10.6)
[2020-05-31 17:11] LABS: Appearance,Urine Cloudy (Clear); Bacteria,Urine Rare /hpf; Bilirubin,Urine Negative (Negative); Blood,Urine Large (Negative); Color,Urine Light Yellow; Glucose,Urine (UA) Negative (Negative); Ketones,Urine Negative (Negative); Leukocyte Esterase,Urine Large (Negative); Mucus,Urine Rare /hpf; Nitrite,Urine Negative (Negative); Protein,Urine Negative (Negative); RBC,Urine 29 /hpf (0-5); Specific Gravity,Urine 1.013 (1.001-1.035); Squamous Epithelial Cell,Urine <1 /hpf (0-4); Urobilinogen,Urine <2.0 mg/dL (<2.0); WBC,Urine 109 /hpf (0-5)
[2020-05-31] MEDS ORDERED: PIPERACILLIN-TAZOBACTAM 3.375 GM in SODIUM CHLORIDE 0.9% 100 ML IVPB STA (17:16)
[2020-05-31 17:22] LABS: ALT 24 U/L (4-34); AST 28 U/L (14-36); African American GFR (CKD) >90 (>60 ml/min/1.73 sqM); Albumin 4.3 g/dL (3.5-5.0); Alkaline Phosphatase 88 U/L (38-126); Anion Gap 7 mmol/L; Blood Urea Nitrogen 13 mg/dL (7-17); Calcium 9.8 mg/dL (8.4-10.2); Carbon Dioxide 25 mmol/L (22-30); Chloride 106 mmol/L (98-107); Glucose 105 mg/dL (74-99); Non-African American GFR(CKD) >90 (>60 ml/min/1.73 sqM); Potassium 4.2 mmol/L (3.5-5.1); Sodium 138 mmol/L (137-145); Total Bilirubin 0.4 mg/dL (0.2-1.3); Total Protein 7.6 g/dL (6.3-8.2)
[2020-05-31 17:24] LABS: INR 0.9 (<1.2); Partial Thromboplastin Time 24.7 sec (22.0-30.0); Prothrombin Time 9.8 sec (9.0-12.0)
--- NOTE | 2020-05-31 17:56 | US ---
EXAMINATION TYPE: US pelvis complete transvag DATE OF EXAM: 05/31/2020 COMPARISON: US CLINICAL HISTORY: pain, discharge, recent delivery. Severe pelvic pain today; ^ weeks post C section delivery; prior 2 days has had brown vaginal discharge, bright red vaginal noted at end of TV US toda y. TECHNIQUE: Transvaginal (TV) and Transabdominal (TA) . Transabdominal sonographic images of the pel vis were acquired. Transvaginal sonographic images were medically necessary to better assess the fol lowing anatomy: endometrium Date of LMP: may be currently on period EXAM MEASUREMENTS: Uterus: 15.3 x 9.4 x 10.1 cm Endometrial Stripe: 2.3 cm Right Ovary: 4.7 x 2.1 x 3.4 cm Left Ovary: 4.3 x 1.9 x 2.0 cm 1. Uterus: enlarged; multiple uterine fibroids (4 seen): largest exophytic noted as complex oval upp er left fibroid = 3.9 x 3.2 x 3.4cm; largest fibroid seen lower uterus as hyperechoic round mass = 6 .0 x 5.3 x 4.9cm. 2. Endometrium: irregular, hypoechoic, heterogeneous and thickened endometrium and is limitedly seen to upper and mid uterus due to uterine fibroids obscuring endometrium. 3. Right Ovary: small follicles seen 4. Left Ovary: small follicles seen Spectral, color and PW Doppler waveform imaging shows good arterial and venous flow within the ovar ies; there is no evidence for ovarian torsion. 5. Bilateral Adnexa: small amount of free fluid seen medial to right ovary = 4.1 x 3.4 x 3.5cm 6. Posterior cul-de-sac: wnl IMPRESSION: Endometrium difficult to evaluate because of multiple fibroids. Minimal complex fluid consistent with blood clot in the endometrial cavity. No adnexal mass. No evidence of ovarian torsion.
[2020-05-31] MEDS ORDERED: fentaNYL (PF) 50 MCG/ML 2 ML AMP IVP STA (19:54)
[2020-05-31] MEDS ORDERED: ONDANSETRON 4 MG/2 ML VIAL IVP PRN (19:58)
[2020-05-31] MEDS ORDERED: NALOXONE 0.4 MG/ML 1 ML VIAL IV PRN (19:58)
[2020-05-31] MEDS ORDERED: GENTAMICIN PER PHARMACY MISCELLANE PRN (20:00)
--- NOTE | 2020-05-31 20:06 | P.HPOB ---
History of Present Illness H&P Date: 05/31/20 Chief Complaint: Pain: Brown discharge: UTI: Questionable endometritis Patient is a 31-year-old female who had a [address] Hagen. She was seen in the office by Dr. Chahal on the for brown discharge and at that time other than the brow discharged the rest of the exam apparently was normal. They had started her on Flagyl for questionable bacterial vaginosis she only started yesterday or possibly the day before so instead of having 40s worth of the antibodies she is only taken perhaps 1 day. Did also discuss starting Provera to have a withdrawal bleed in approximately 10 days, but she did not start that. She is breast-feeding and this does explain her lack of menses to this juncture. However, on ultrasound, the lining of her uterus is 2.3 cm with what appears to be some blood in the lining of the uterus. She's noted to have several fibroids. One of the fibroids anteriorly is approximately 6 x 5 cm. There is a fundal one that is smaller in the 2 x 2 cm range. These do not seem to be the cause of her symptomatology. I was initially called in with a question that possibly one of these was prolapsing and that she had degenerating prolapsing fibroid, but I do not believe this is the case. She did not tolerate the exam at that side well however, I did do a sterile spec exam however please see note below. Past medical history is significant for anxiety Past surgical history 2 Social history unremarkable Family history of hypertension ALLERGIES to albuterol which she relates is more a side effect issue where her she gets anxious and has tachycardia Medications Flagyl On physical exam heart regular, lungs clear, extremities without pain. Abdomen soft. Uterus is palpated above the pubic symphysis and is unclear if this is the Oddy of the uterus or the fibroid that is being felt. Uterus measures on ultrasound at 15 cm in size with a 2.3 cm lining plus fibroids as noted previously. On pelvic exam she was very tender. There was a very thick discharge coating of the cervix making it very difficult to visualize the cervix. Despite trying to remove the discharge with [place] lop or a ring forcep the discharge did not come free of the cervix. It is not consistent with products of conception it is not consistent with membranes or placental tissue so is unclear at this time what this thick discharge is. [place] does appear slightly inflamed with palpated nabothian cysts Assessment as above with patient started on antibiotics for what appears to be complex significant urinary tract infection and possible endometritis Plan IV antibiotics. She and I did discuss the possibility of doing a D&C this evening or at least an exam under anesthesia to better assess the discharge and assessment the reason for the lining of her uterus being so thickened. During the discussion of risks did include but were not limited to bleeding and worsening of infection also there was a discussion of perforation particularly with her being 6 weeks the uterus is still potentially very soft and could perforate due to this she was very hesitant to proceed as she was only having discomfort and did not want to risk perforation. We also did discuss possibility of synechiae forming should she have a D&C making it difficult to potentially get in the future. We did discuss with possibility of perforation causing abdominal infection as well as possible need for other surgery as well as damage to the bladder or bowel. Her was at bedside and seemed to understand the discussion and both of them have decided that holding off on doing any surgery at this time would be their preference but should she have worsening of symptoms then it may become necessary to get a more thorough evaluation and more thorough understanding of what is causing her symptoms. Past Medical History Past Medical History: No Reported History Additional Past Medical History / Comment(s): Uterine fibroids; previous vaginal delivery complicated by fourth degree laceration History of Any Multi-Drug Resistant Organisms: None Reported Past Surgical History: No Surgical Hx Reported Past Anesthesia/Blood Transfusion Reactions: No Reported Reaction Past Psychological History: Anxiety Smoking Status: Never smoker Past Alcohol Use History: None Reported Past Drug Use History: None Reported - Past Family History Brother(s) Family Medical History: Asthma Additional Family Medical History / Comment(s): 2 years ago Medications and Allergies Home Medications Medication Instructions Recorded Confirmed Type Vpk-Kiwv-Smwvr Acid 1 cap PO DAILY 09/11/17 05/31/20 History [-U Capsule (formulary)] HYDROcodone/APAP 5-325MG [[place] 1 each PO Q4HR PRN #28 tab 04/18/20 05/31/20 Rx 5-325] Acetaminophen [Tylenol] 1,000 mg PO ONCE 05/31/20 05/31/20 History Sertraline HCl [Zoloft] 50 mg PO HS 05/31/20 05/31/20 History metroNIDAZOLE [Flagyl] 500 mg PO Q12H 05/31/20 05/31/20 History Allergies Allergy/AdvReac Type Severity Reaction Status Date / Time albuterol AdvReac Rapid Verified 05/31/20 17:45 Heart Rate Exam Osteopathic Statement: *. No significant issues noted on an osteopathic structural exam other than those noted in the History and Physical/Consult. Vital Signs Temp Pulse Resp BP Pulse Ox 05/31/20 17:52 61 18 122/75 97 05/31/20 15:25 98.4 F 90 18 151/77 98 Intake and Output 05/31/20 05/31/20 05/31/20 06:59 14:59 22:59 Other: Weight 82.554 kg Results Result Diagrams: 05/31/20 16:13 05/31/20 16:13 Abnormal Lab Results - Last 24 Hours (Table) 05/31/20 05/31/20 05/31/20 Range/Units 16:13 16:13 16:13 WBC 13.9 H (3.8-10.6) k/uL MCV 78.7 L (80.0-100.0) fL Neutrophils # 11.3 H (1.3-7.7) k/uL Glucose 105 H (74-99) mg/dL Urine Appearance Cloudy H (Clear) Urine Blood Large H (Negative) Ur Leukocyte Esterase Large H (Negative) Urine RBC 29 H (0-5) /hpf Urine WBC 109 H (0-5) /hpf Urine WBC Clumps Many H (None) /hpf Urine Bacteria Rare H (None) /hpf Urine Mucus Rare H (None) /hpf
[2020-05-31] MEDS ORDERED: LORazepam 1 MG TAB PO PRN (20:17)
[2020-05-31] MEDS ORDERED: GENTAMICIN 120 MG in SODIUM CHLORIDE 0.9% 100 ML IVPB ONE (20:30)
[2020-05-31 21:25] VITALS: RESP 16
[2020-05-31] MEDS: SODIUM CHLORIDE 0.9% 1,000 ML IV SCH (21:27)
[2020-05-31] MEDS: SERTRALINE 50 MG TAB PO SCH (21:43)
[2020-05-31] MEDS: metroNIDAZOLE 500 MG TAB PO SCH (21:43)
[2020-05-31] MEDS: HYDROcodone/APAP 5-325MG 1 EACH TAB PO PRN (22:02)
[2020-06-01] MEDS: PIPERACILLIN-TAZOBACTAM 3.375 GM in SODIUM CHLORIDE 0.9% 100 ML IVPB SCH ×4 (00:01→23:59)
[2020-06-01] MEDS ORDERED: LORazepam 0.5 MG TAB PO PRN (04:06)
[2020-06-01] MEDS: GENTAMICIN 120 MG in SODIUM CHLORIDE 0.9% 100 ML IVPB SCH ×3 (04:08→20:03)
[2020-06-01] MEDS ORDERED: LORazepam 1 MG TAB PO PRN (04:15)
[2020-06-01 06:55] LABS: Basophils % (A) 0 %; Eosinophils # (A) 0.2 k/uL (0-0.7); Eosinophils % (A) 2 %; HGB 10.6 gm/dL (11.4-16.0); Lymphocytes # (A) 1.2 k/uL (1.0-4.8); Lymphocytes % (A) 12 %; MCH 26.1 pg (25.0-35.0); MCHC 33.1 g/dL (31.0-37.0); MCV 78.7 fL (80.0-100.0); Mean Platelet Volume 6.6; Monocytes # (A) 0.7 k/uL (0-1.0); Monocytes % (A) 6 %; Neutrophils % (A) 78 %; Platelet Count 399 k/uL (150-450); RBC 4.06 m/uL (3.80-5.40); RDW 14.4 % (11.5-15.5); WBC 10.3 k/uL (3.8-10.6)
[2020-06-01 07:13] LABS: African American GFR (CKD) >90 (>60 ml/min/1.73 sqM); Anion Gap 6 mmol/L; Blood Urea Nitrogen 9 mg/dL (7-17); Calcium 8.8 mg/dL (8.4-10.2); Carbon Dioxide 26 mmol/L (22-30); Chloride 107 mmol/L (98-107); Glucose 103 mg/dL (74-99); Non-African American GFR(CKD) 79 (>60 ml/min/1.73 sqM); Potassium 3.7 mmol/L (3.5-5.1); Sodium 139 mmol/L (137-145)
[2020-06-01] MEDS: KETOROLAC 15 MG/ML 1 ML VIAL IVP SCH ×2 (08:31→15:41)
--- NOTE | 2020-06-01 08:54 | PN ---
PROGRESS NOTE The patient is seen and evaluated again this morning. Still has no fevers, no change in vital signs, and her pain was tolerable through the night. She relates that her pain in her pelvis is increasing slightly this morning, but she has been up and has avoided and has ambulated. She is still not interested in going to surgery due to risk quoted yesterday, therefore we will continue observational care with pain control and IV antibiotics. We will plan to follow up with her later this morning or this afternoon to see if her symptoms have progressed or changed. We will allow her to eat this morning since she is not interested in surgery at this time and will determine further and future treatment plans based on how her symptoms evolve. MMODL / IJN: [id number] /
[2020-06-01] MEDS: metroNIDAZOLE 500 MG TAB PO SCH ×2 (09:50→21:04)
[2020-06-01] MEDS: HYDROcodone/APAP 5-325MG 1 EACH TAB PO PRN (10:43)
[2020-06-01] MEDS ORDERED: GENTAMICIN TROUGH DUE 1 EACH MISC MISCELLANE ONE (11:30)
[2020-06-01] MEDS ORDERED: GENTAMICIN PEAK DUE 1 EACH MISC MISCELLANE ONE (14:00)
[2020-06-01] MEDS: SODIUM CHLORIDE 0.9% 1,000 ML IV SCH ×2 (17:22→18:11)
--- NOTE | 2020-06-01 18:45 | P.PN ---
Progress Note - Text Progress Note Date: 06/01/20 Pt seen and examined at bedside. She is playing a some discharge. Her pain has improved with IV antibiotics. Is taking Toradol and [place] as well. Currently she remains afebrile. Assessment 1. Status post 8 weeks ago 2. Fibroid uterus 3. Possible endometritis Plan 1. Continue IV antibiotics 2. If she continues to improve its possible while discharged her home on oral antibiotics.
[2020-06-01] MEDS: SERTRALINE 50 MG TAB PO SCH (21:04)
[2020-06-02] MEDS: KETOROLAC 15 MG/ML 1 ML VIAL IVP SCH ×2 (02:53→06:20)
[2020-06-02] MEDS: SODIUM CHLORIDE 0.9% 1,000 ML IV SCH (04:49)
[2020-06-02] MEDS: GENTAMICIN 120 MG in SODIUM CHLORIDE 0.9% 100 ML IVPB SCH (04:50)
[2020-06-02 06:19] VITALS: BP 115/63; PULSE 54; TEMP 98
--- NOTE | 2020-06-02 07:19 | P.DS ---
Providers Date of admission: 05/31/20 20:00 Expected date of discharge: 06/02/20 Attending physician: Leighton Langford Primary care physician: Troy Hylton - Discharge Diagnosis(es) (1) Endometritis Current Visit: Yes Status: Acute Hospital Course: Patient presented complaining of low pelvic pain and her uterus status post C- section about 7-8 weeks ago. She does have a mother's brown discharge and awakened of 13. She was placed on Zosyn, gent, Flagyl. Her pain has improved after 24 hours of IV antibiotics and her white count came back to normal. Sh e'll be discharged home with Augmentin and Flagyl to follow-up with Dr. Hagen in one week. Patient Condition at Discharge: Stable Plan - Discharge Summary New Discharge Prescriptions: New Amoxic-Pot Clav 875-125Mg [Augmentin 875-125] 1 tab PO BID 10 Days #20 tab metroNIDAZOLE [Flagyl] 500 mg PO Q12H tab Sertraline [Zoloft] 50 mg PO HS tab Continue HYDROcodone/APAP 5-325MG [[place] 5-325] 1 each PO Q4HR PRN #10 tab PRN Reason: Moderate Pain Discontinued Sertraline HCl [Zoloft] 50 mg PO HS metroNIDAZOLE [Flagyl] 500 mg PO Q12H No Action Jjj-Rjti-Tneti Acid [-U Capsule (formulary)] 1 cap PO DAILY Acetaminophen [Tylenol] 1,000 mg PO ONCE Discharge Medication List Mjs-Zgzn-Vguey Acid [-U Capsule (formulary)] 1 cap PO DAILY 09/11/17 [History] Acetaminophen [Tylenol] 1,000 mg PO ONCE 05/31/20 [History] Amoxic-Pot Clav 875-125Mg [Augmentin 875-125] 1 tab PO BID 10 Days #20 tab 06/02/20 [Rx] HYDROcodone/APAP 5-325MG [[place] 5-325] 1 each PO Q4HR PRN #10 tab 06/02/20 [Rx] Sertraline [Zoloft] 50 mg PO HS tab 06/02/20 [Rx] metroNIDAZOLE [Flagyl] 500 mg PO Q12H tab 06/02/20 [Rx] Follow up Appointment(s)/Referral(s): Troy Hylton, [Primary Care Provider] - 1-2 days Yasemin Hagen DO [Doctor of Osteopathic Medicine] - 1 Week Discharge Disposition: HOME SELF-CARE
[2020-06-02] MEDS: PIPERACILLIN-TAZOBACTAM 3.375 GM in SODIUM CHLORIDE 0.9% 100 ML IVPB SCH (09:18)
[2020-06-02] MEDS: metroNIDAZOLE 500 MG TAB PO SCH (09:18)
[2020-06-02 14:49] LABS: C. trachomatis,PCR Negative (Neg,Equiv); Chlamydia trachomatis Source Vagina; N. gonorrhoeae,PCR Negative (Neg,Equiv); Neisseria Source Vagina
== END 2020-06-02 09:05 | disposition home or self-care (01) ==
LOC: EC 15:20 → 1SOBS 20:00 → 4FBP 20:15
PROVIDERS: ADMIT Obstetrics & Gynecology; ATTEND Obstetrics & Gynecology
DX: N39.0 Urinary tract infection, site not specified (principal); D25.9 Leiomyoma of uterus, unspecified; N71.9 Inflammatory disease of uterus, unspecified; N88.8 Other specified noninflammatory disorders of cervix uteri; Z98.891 History of uterine scar from previous surgery; Z79.899 Other long term (current) drug therapy; Z88.8 Allergy status to other drugs, medicaments and biological substances; F41.9 Anxiety disorder, unspecified; Z82.5 Family history of asthma and other chronic lower respiratory diseases; Z82.49 Family history of ischemic heart disease and other diseases of the circulatory system; R00.0 Tachycardia, unspecified
CPT/HCPCS: 96376; 96366 ×3; 96367; 96375 ×2; 96361; 96365; 99285; 36415; 80170 ×2; 80053; 80048; 85025 ×2; 85610; 85730; 81001; 81025; 87040; 87808; 87491; 87591; 87070; 87086; 93975; 76856; 76830; G0378 ×3; J2543 ×2; J1580 ×3; J3010; J1885

== ENCOUNTER → 2020-06-16 | Outpatient (CLI) | payer OTHER ==
[2020-06-16 13:41] LABS: African American GFR (CKD) >90 (>60 ml/min/1.73 sqM); Anion Gap 10 mmol/L; Blood Urea Nitrogen 24 mg/dL (7-17); Carbon Dioxide 27 mmol/L (22-30); Chloride 104 mmol/L (98-107); Glucose 86 mg/dL (74-99); Non-African American GFR(CKD) 88 (>60 ml/min/1.73 sqM); Potassium 4.4 mmol/L (3.5-5.1); Sodium 141 mmol/L (137-145)
[2020-06-16 13:43] LABS: Basophils % (A) 0 %; Eosinophils # (A) 0.2 k/uL (0-0.7); Eosinophils % (A) 3 %; HCT 36.7 % (34.0-46.0); HGB 12.1 gm/dL (11.4-16.0); Hypochromasia Slight; Lymphocytes # (A) 1.4 k/uL (1.0-4.8); Lymphocytes % (A) 18 %; MCV 78.6 fL (80.0-100.0); Mean Platelet Volume 6.7; Monocytes # (A) 0.5 k/uL (0-1.0); Monocytes % (A) 7 %; Neutrophils # (A) 5.3 k/uL (1.3-7.7); Neutrophils % (A) 71 %; Platelet Count 428 k/uL (150-450); RBC 4.67 m/uL (3.80-5.40); RDW 14.1 % (11.5-15.5); WBC 7.5 k/uL (3.8-10.6)
== END | disposition home or self-care (01) ==
LOC: LABPAT 12:21
PROVIDERS: ATTEND Obstetrics & Gynecology
DX: Z01.818 Encounter for other preprocedural examination (principal)
CPT/HCPCS: 36415; 80048; 85025

== ENCOUNTER → 2020-06-18 | Outpatient (CLI) | payer OTHER | END | disposition home or self-care (01) | LOC: LABMAIN 14:47 | PROVIDERS: ATTEND Obstetrics & Gynecology | DX: Z53.9 Procedure and treatment not carried out, unspecified reason (principal) ==

== ENCOUNTER 2020-06-20 05:31 | Inpatient (IN) | payer OTHER ==
[2020-06-14 14:24] VITALS: BMI 29.1
--- NOTE | 2020-06-19 14:21 | P.HPOB ---
History of Present Illness H&P Date: 06/19/20 Chief Complaint: Pelvic pain, uterine fibroids This is a 30 y.o. female, 2, para 2, who presents for total abdominal hysterectomy with bilateral salpingectomy due to painful uterine fibroids and probable prolapsed fibroid. She delivered her last child by section on 04/16/2020. At that time, she had presented in active labor. Due to the size of her fibroids, her uterus was unable to be exteriorized during the section. At her one week postoperative appointment, she complained of a vaginal odor and was treated for bacterial vaginosis. Her symptoms improved, but then returned by her 6 week appointment. At that time, she was noted to have a thick brown malodorous discharge. She was again treated for bacterial vaginosis. She began having severe sharp and crampy pelvic pain approximately 4 days later and was admitted for possible endometritis and urinary tract infection. She was treated with antibiotics and her symptoms did improve. She also started having vaginal bleeding during her admission that slowed after discharge. She was seen in the office on 06/07/2020 and was noted to have some tissue-like pieces protruding through the cervix. Pathology showed no chorionic villi or endometrial tissue, just thrombus and fibrin with trapped inflammatory cells. I saw her again on 06/13/2020 and she complained of something protruding though her vagina. She stated her pain was now gone, but she was still having a brown discharge. On exam, she was found to have a rather large mass protruding through her cervix that was firmly attached, but very soft with an irregular contour consisted with either prolapsed fibroid or partial uterine inversion. She was counselled on attempting dilatation and currettage to better evaluate and potentially remove prolapsing fibroid, but states she and her discussed this and they would like to proceed with hysterectomy. She would like to preserve her ovaries. OB Hx: . History of 1 vaginal delivery with 4th degree laceration. History of section. Skin Therapist Hx: No history of STDs. Social Hx: . Homemaker. Review of Systems Constitutional: Denies chills, Denies fever Eyes: denies blurred vision, denies pain Ears, nose, mouth and throat: Denies headache, Denies sore throat Cardiovascular: Denies chest pain, Denies shortness of breath Respiratory: Denies cough Gastrointestinal: Denies abdominal pain, Denies diarrhea, Denies nausea, Denies vomiting Genitourinary: Reports pelvic pain, Reports vaginal discharge (brown) Musculoskeletal: Denies myalgias Integumentary: Denies pruritus, Denies rash Neurological: Denies numbness, Denies weakness Psychiatric: Reports anxiety Past Medical History Past Medical History: No Reported History Additional Past Medical History / Comment(s): Uterine fibroids. pelvic pain History of Any Multi-Drug Resistant Organisms: None Reported Past Surgical History: Section Additional Past Surgical History / Comment(s): on 04/16/2020 Past Anesthesia/Blood Transfusion Reactions: No Reported Reaction, Motion Sickness Past Psychological History: Anxiety Smoking Status: Never smoker Past Alcohol Use History: Rare Past Drug Use History: None Reported - Past Family History Brother(s) Family Medical History: Asthma Additional Family Medical History / Comment(s): 2 years ago Medications and Allergies Home Medications Medication Instructions Recorded Confirmed Type Vah-Mtya-Joqsv Acid 1 cap PO DAILY 09/11/17 06/14/20 History [-U Capsule (formulary)] Acetaminophen [Tylenol] 500 mg PO DAILY PRN 05/31/20 06/14/20 History HYDROcodone/APAP 5-325MG [[place] 1 each PO Q4HR PRN #10 tab 06/02/20 06/14/20 Rx 5-325] Sertraline [Zoloft] 50 mg PO HS tab 06/02/20 06/14/20 Rx Allergies Allergy/AdvReac Type Severity Reaction Status Date / Time albuterol AdvReac Rapid Verified 06/14/20 14:10 Heart Rate Exam Osteopathic Statement: *. No significant issues noted on an osteopathic structural exam other than those noted in the History and Physical/Consult. HEENT: within normal limits Heart: regular rate and rhythm Lungs: clear to auscultation bilaterally Abdomen: soft, non-tender Pelvic: uterus nodular, sl. enlarged, non-tender with large soft, irregular mass protruding through cervix with brown discharge, mildly tender. No adnexal masses or tenderness noted. Extremities: neg. Pratima's Assessment and Plan (1) Fibroids Status: Acute Code(s): D21.9 - BENIGN NEOPLASM OF CONNECTIVE AND OTHER SOFT TISSUE, UNSP SNOMED Code(s): 451171904089975 (2) Pelvic pain Status: Acute Code(s): R10.2 - PELVIC AND PERINEAL PAIN SNOMED Code(s): 82311254 Plan: Proceed with total abdominal hysterectomy with bilateral salpingectomy. I have discussed the risks, benefits, and alternative therapies for the above- mentioned procedure and for both sedation/anesthesia as well as necessary blood products administration, if indicated, as they pertain to this patient. The patient has indicated her understanding and acceptance of the risks and procedures discussed.
[2020-06-20] MEDS ORDERED: ONDANSETRON 4 MG/2 ML VIAL IVP ONE (05:41)
[2020-06-20] MEDS ORDERED: HYDROmorphone 0.5 MG/0.5 ML SYRINGE IVP PRN (05:41)
[2020-06-20] MEDS ORDERED: MIDAZOLAM 2 MG/2 ML VIAL IV PRN (05:41)
[2020-06-20] MEDS ORDERED: DEXAMETHASONE SOD PHOSPHATE 4 MG/ML 1 ML VIAL IV ONE (05:41)
[2020-06-20] MEDS: LACTATED RINGERS 1,000 ML IV SCH (06:28)
[2020-06-20] MEDS ORDERED: SCOPOLAMINE 1.5MG/72HR PATCH TRANSDERM ONE (06:28)
[2020-06-20] MEDS ORDERED: MIDAZOLAM 2 MG/2 ML VIAL IV ONE (06:46)
[2020-06-20] MEDS ORDERED: fentaNYL (PF) 50 MCG/ML 2 ML AMP IV ONE (06:52)
[2020-06-20] MEDS ORDERED: LIDOCAINE 1% INJ 10MG/ML (20 ML MDV) ONE (06:54)
[2020-06-20] MEDS ORDERED: KETOROLAC 15 MG/ML 1 ML VIAL ONE (06:54)
[2020-06-20] MEDS ORDERED: MORPHINE SULFATE (PF) 0.3 MG/0.3 ML SYR ONE (06:54)
[2020-06-20] MEDS ORDERED: PROPOFOL 10 MG/ML 20 ML VIAL IV ONE (06:54)
[2020-06-20] MEDS ORDERED: ROCURONIUM 10 MG/ML (10 ML VIAL) IV ONE (06:54)
[2020-06-20] MEDS ORDERED: NEOSTIGMINE 1 MG/ML 10 ML VIAL ONE (06:54)
[2020-06-20] MEDS ORDERED: GLYCOPYRROLATE 0.2 MG/ML 2 ML VIAL ONE (06:54)
[2020-06-20] MEDS ORDERED: fentaNYL (PF) 50 MCG/ML 2 ML AMP ONE (06:54)
[2020-06-20] MEDS ORDERED: ePHEDrine SULFATE/0.9% NACL/PF 50 MG/5 ML SYRINGE IV ONE (06:54)
--- NOTE | 2020-06-20 07:16 | P.ANPRN ---
Procedure Note - Anesthesia - Epidural/Spinal Spinal Time Out Performed: Yes Date of Procedure: 06/20/20 Procedure Start Time: 06:45 Procedure Stop Time: 06:50 Location of Patient: PreOp Indication: Acute Post-Operative Pain Sedation Type: Sedate with meaningful contact maintained Preparation: Sterile Prep Number of Attempts: 1 Position: Sitting Needle Guage: 25 Injectate: Other Narrative: Fentanyl 50 mcg Preservative free Duramorph 300 mcg Blood Aspirated: No Pain Paresthesia on Injection Noted: No Events: Uneventful and Well Tolerated
[2020-06-20] MEDS ORDERED: LACTATED RINGERS 1,000 ML IV ONE (07:58)
--- NOTE | 2020-06-20 08:28 | P.OP ---
Date of Procedure: 06/20/20 Preoperative Diagnosis: Pelvic pain Uterine fibroids Postoperative Diagnosis: Same Procedure(s) Performed: Total abdominal hysterectomy with bilateral salpingectomy Anesthesia: GETA, spinal (Duramorph) Surgeon: Yasemin Hagen Sleep Medicine Physician #1: Kavin Lund Estimated Blood Loss (ml): 300 Pathology: other (Uterus with cervix, bilateral tubes) Condition: stable Disposition: floor Indications for Procedure: This is a 30 y.o. female, 2, para 2, who presents for total abdominal hysterectomy with bilateral salpingectomy due to painful uterine fibroids and probable prolapsed fibroid. She delivered her last child by section on 04/16/2020. At that time, she had presented in active labor. Due to the size of her fibroids, her uterus was unable to be exteriorized during the section. At her one week postoperative appointment, she complained of a vaginal odor and was treated for bacterial vaginosis. Her symptoms improved, but then returned by her 6 week appointment. At that time, she was noted to have a thick brown malodorous discharge. She was again treated for bacterial vaginosis. She began having severe sharp and crampy pelvic pain approximately 4 days later and was admitted for possible endometritis and urinary tract infection. She was treated with antibiotics and her symptoms did improve. She also started having vaginal bleeding during her admission that slowed after discharge. She was seen in the office on 06/07/2020 and was noted to have some tissue-like pieces protruding through the cervix. Pathology showed no chorionic villi or endometrial tissue, just thrombus and fibrin with trapped inflammatory cells. I saw her again on 06/13/2020 and she complained of something protruding though her vagina. She stated her pain was now gone, but she was still having a brown discharge. On exam, she was found to have a rather large mass protruding through her cervix that was firmly attached, but very soft with an irregular contour consisted with either prolapsed fibroid or partial uterine inversion. She was counselled on attempting dilatation and currettage to better evaluate and potentially remove prolapsing fibroid, but states she and her discussed this and they would like to proceed with hysterectomy. She would like to preserve her ovaries. Operative Findings: Enlarged bulky uterus with multiple fibroids especially on the left posterior part of the uterus is noted. Upon removal of the uterus a very large degenerating foul-smelling necrotic fibroid is noted protruding through the cervix. Both tubes and ovaries appeared normal. Description of Procedure: The patient is taken to the operating room where she is placed in the dorsal supine position. She is prepped and draped in the normal sterile fashion including Pete catheter insertion and vaginal prep. During the vaginal prep it is noted that she has a mass within the vagina that is brown in color with stringy tissue hanging from it and a foul odor. A Pfannenstiel skin incision is made through the previous laparotomy scar with a scalpel. A second knife was used to carry the incision down to the underlying layer of fascia. The fascia was nicked in the midline with a scalpel and then extended laterally bilaterally with Marion scissors. The superior aspect of the fascial incision was grasped with Marline clamps, elevated off the underlying rectus muscle in the midline and then cut with Marion scissors. The inferior aspect of the fascial incision was grasped with Marline clamps, elevated off the underlying rectus muscle in the midline and then cut with Marion scissors. Next the peritoneum was identified and entered sharply with Marion scissors. It is extended superiorly and in fairly with Metzenbaum scissors with good visualization of underlying structures. Next the [place] retractor is placed in the bladder blade was inserted. The bowels were packed with a 3 yard laparotomy sponge. Next the uterus is brought up incision and the corneal regions are grasped with Estefany clamps on both sides. Next the fallopian tube on the left side is brought up to the incision and the mesosalpinx is clamped with a Alyse clamp. This is cut with Marion scissors and then sutured with 0 Vicryl suture in Alyse transfixion stitch. The remaining mesosalpinx is also clamped with a Alyse clamp, cut with Marion scissors, and sutured with 0 Vicryl suture in Alyse transfixion stitches. Next the uterine ovarian ligament is clamped with a Alyse clamp, cut with Marion scissors, and then sutured with 0 Vicryl suture in Alyse transfixion stitch. The same procedure is carried out on the right side. The uterine arteries are then clamped with Alyse clamp on either side. The vesicouterine peritoneum was sharply dissected away from the bladder with Metzenbaum scissors and pushed inferiorly. The bladder flap is adherent to the lower uterine segment slightly. Upon taking down the bladder flap, I entered into the uterine cavity in the midline. The uterine arteries are then cut with Marion scissors, and sutured with 0 Vicryl suture in Alyse transfixion stitches. Next the cardinal ligaments were clamped on either side with Alyse clamp, cut with Marion scissors, and sutured with 0 Vicryl suture in Alyse transfixion stitches. The uterosacral ligaments are clamped on either side with Alyse clamps, cut with Marion scissors, and sutured with 0 Vicryl suture in Alyse transfixion stitches on either side. The edges of the vaginal cuff were clamped on either side with a Alyse clamp, cut with Marion scissors, and sutured with 0 Vicryl suture in Alyse transfixion stitches and held on either side. The vaginal mucosa was then cut just below the level of the cervix and the specimen is removed from the field. A very large necrotic foul-smelling fibroid type tissue was protruding through the cervix. The edges of the vaginal cuff were held with Marline clamps. Next the previously held corners of each side of the vaginal cuff were then whipstitched along the connective tissue on either side and brought through the corner of the cuff and tied. Next the vaginal cuff was sutured with 0 Vicryl suture in a running locked fashion. Hemostasis was noted. Copious irrigation is carried out with warm saline. Several interrupted stitches are placed for hemostasis. Good hemostasis is noted. All sponges are removed from the abdomen. The peritoneum is then closed with 0 Vicryl suture in a running fashion. The muscle was then reapproximated with 0 Vicryl suture in interrupted fashion. The fascia layer is then closed with 0 PDS suture in a running fashion with the knots buried on either side and in the midline. Next the subcutaneous tissues closed with 2-0 Vicryl suture in a running fashion. The skin is closed with rios. All sponge and needle counts are correct and the patient is taken to recovery room in stable condition.
[2020-06-20] MEDS: HYDROmorphone 1 MG/ML 1 ML SYRINGE IVP ONE ×2 (09:20→09:26)
[2020-06-20] MEDS: diphenhydrAMINE 50 MG/ML 1 ML VIAL IVP ONE ×2 (09:30→09:50)
[2020-06-20] MEDS ORDERED: ZOLPIDEM 5 MG TAB PO PRN (10:19)
[2020-06-20] MEDS ORDERED: HYDROcodone/APAP 5-325MG 1 EACH TAB PO PRN (10:19)
[2020-06-20] MEDS ORDERED: NALOXONE 0.4 MG/ML 1 ML VIAL IV PRN (10:25)
[2020-06-20] MEDS ORDERED: MORPHINE SULFATE 2 MG/ML SYRINGE IVP PRN (10:25)
[2020-06-20] MEDS: PRENATAL VIT-IRON-FOLIC ACID 1 EACH CAP PO SCH (11:12)
[2020-06-20] MEDS: SENNOSIDES-DOCUSATE SODIUM 1 EACH TAB PO SCH ×2 (11:12→20:50)
[2020-06-20] MEDS: ONDANSETRON 4 MG/2 ML VIAL IVP PRN ×2 (11:34→20:50)
[2020-06-20] MEDS: METOCLOPRAMIDE 5 MG/ML 2 ML VIAL IVP PRN (16:20)
[2020-06-20] MEDS: SERTRALINE 50 MG TAB PO SCH (20:48)
[2020-06-20] MEDS: KETOROLAC 15 MG/ML 1 ML VIAL IVP PRN (20:51)
[2020-06-21] MEDS: diphenhydrAMINE 50 MG/ML 1 ML VIAL IVP PRN (01:24)
[2020-06-21] MEDS: METOCLOPRAMIDE 5 MG/ML 2 ML VIAL IVP PRN (01:25)
[2020-06-21] MEDS: KETOROLAC 15 MG/ML 1 ML VIAL IVP PRN ×4 (04:04→22:23)
[2020-06-21] MEDS: ONDANSETRON 4 MG/2 ML VIAL IVP PRN (04:04)
[2020-06-21] MEDS: LACTATED RINGERS 1,000 ML IV SCH (06:07)
[2020-06-21 06:13] LABS: Basophils % (A) 0 %; Eosinophils % (A) 0 %; HCT 30.3 % (34.0-46.0); HGB 10.1 gm/dL (11.4-16.0); Lymphocytes # (A) 0.8 k/uL (1.0-4.8); Lymphocytes % (A) 7 %; MCH 25.9 pg (25.0-35.0); MCHC 33.4 g/dL (31.0-37.0); MCV 77.6 fL (80.0-100.0); Mean Platelet Volume 6.6; Monocytes % (A) 8 %; Neutrophils # (A) 9.9 k/uL (1.3-7.7); Neutrophils % (A) 84 %; Platelet Count 346 k/uL (150-450); RDW 14.6 % (11.5-15.5); WBC 11.9 k/uL (3.8-10.6)
--- NOTE | 2020-06-21 09:03 | P.PN ---
Progress Note - Text Progress Note Date: 06/21/20 Patient evaluated at 0700 on 06/21/2020, 30 y/o female POD#1 LANETTE/BSO under general anesthesia with PF Duramorph/Fentanyl SAB for post-op pain management Patient reports minimal pain. Complains of her nose itching which has subsided over night. No reports of fever, back pain, headache, paresthesias or numbness of the lower extremities. Patient to be discharged to home and will follow up as indicated.
[2020-06-21] MEDS: SENNOSIDES-DOCUSATE SODIUM 1 EACH TAB PO SCH ×2 (09:10→20:29)
[2020-06-21] MEDS: PRENATAL VIT-IRON-FOLIC ACID 1 EACH CAP PO SCH (09:11)
--- NOTE | 2020-06-21 10:55 | P.PN ---
Subjective Progress Note Date: 06/21/20 Principal diagnosis: S/P LANETTE, B/L salpingectomy, POD#1 Patient starting to feel a little better this morning. Lots of N/V last night. Able to urinate on her own this morning. Starting to ambulate. Minimal bleeding. Objective - Vital Signs Vital signs: Vital Signs Temp 97.8 F 06/21/20 08:04 Pulse 86 06/21/20 08:04 Resp 16 06/21/20 09:00 BP 108/64 06/21/20 08:04 Pulse Ox 96 06/21/20 08:04 Intake & Output 06/20/20 06/21/20 06/21/20 18:59 06:59 18:59 Intake Total 800 80 Output Total 675 650 150 Balance 125 -570 -150 Weight 83.3 kg Intake: IV 800 Oral 80 Output: Urine 375 650 150 Uretheral (Pete) 275 Estimated Blood Loss 300 Other: Voiding Method Indwelling Catheter Toilet # Bowel Movements 0 - Gastrointestinal General gastrointestinal: Present: normal bowel sounds, soft - Genitourinary Genitourinary Comment(s): Peripad with scant serosanginous discharge - Integumentary Integumentary Comment(s): Incision clean dry intact with rios in place. - Musculoskeletal Musculoskeletal Comment(s): Neg. Pratima's - Labs CBC & Chem 7: 06/21/20 05:36 Labs: Abnormal Lab Results - Last 24 Hours (Table) 06/21/20 Range/Units 05:36 WBC 11.9 H (3.8-10.6) k/uL Hgb 10.1 L (11.4-16.0) gm/dL Hct 30.3 L (34.0-46.0) % MCV 77.6 L (80.0-100.0) fL Neutrophils # 9.9 H (1.3-7.7) k/uL Lymphocytes # 0.8 L (1.0-4.8) k/uL Assessment and Plan Assessment: S/P LANETTE, B/L salpingectomy POD#1 (1) Fibroids Current Visit: No Status: Acute Code(s): D21.9 - BENIGN NEOPLASM OF CONNECTIVE AND OTHER SOFT TISSUE, UNSP SNOMED Code(s): 265455065119475 (2) Pelvic pain Current Visit: No Status: Acute Code(s): R10.2 - PELVIC AND PERINEAL PAIN SNOMED Code(s): 05414411 Plan: Cont. with po care, ambulation. Encouraged fluids. Will switch to oral pain meds today.
[2020-06-21] MEDS: HYDROcodone/APAP 7.5-325MG 1 EACH TAB PO PRN ×2 (14:44→20:29)
[2020-06-21] MEDS: SERTRALINE 50 MG TAB PO SCH (20:30)
[2020-06-21] MEDS: SIMETHICONE 80 MG CHEWABLE PO PRN (20:37)
[2020-06-22] MEDS: SIMETHICONE 80 MG CHEWABLE PO PRN ×4 (01:59→17:42)
[2020-06-22] MEDS: HYDROcodone/APAP 7.5-325MG 1 EACH TAB PO PRN ×4 (01:59→20:56)
[2020-06-22] MEDS: ONDANSETRON 4 MG/2 ML VIAL IVP PRN (01:59)
[2020-06-22] MEDS: ACETAMINOPHEN TAB 325 MG TAB PO PRN ×4 (02:00→20:56)
[2020-06-22] MEDS: KETOROLAC 15 MG/ML 1 ML VIAL IVP PRN ×3 (04:37→23:51)
[2020-06-22] MEDS: diphenhydrAMINE 50 MG/ML 1 ML VIAL IVP PRN ×2 (04:40→23:57)
--- NOTE | 2020-06-22 08:47 | P.PN ---
Subjective Progress Note Date: 06/22/20 Principal diagnosis: S/P LANETTE, B/L salpingectomy, POD#2 Patient is doing okay. She still is having some pain control issues. She is ambulating. She is passing some flatus and is urinating without difficulty. She still feels some nausea and some weakness. Bleeding is minimal. Objective - Vital Signs Vital signs: Vital Signs Temp 97.9 F 06/22/20 02:02 Pulse 79 06/22/20 02:02 Resp 16 06/22/20 02:02 BP 116/69 06/22/20 02:02 Pulse Ox 97 06/22/20 02:02 Intake & Output 06/21/20 06/22/20 06/22/20 18:59 06:59 18:59 Intake Total 320 320 Output Total 750 1500 Balance -430 -1180 Intake: Oral 320 320 Output: Urine 750 1500 Other: Voiding Method Toilet Toilet # Voids 1 - Constitutional General appearance: Present: no acute distress - Gastrointestinal Gastrointestinal Comment(s): Incision is clean dry and intact with rios in place, mildly tender General gastrointestinal: Present: normal bowel sounds - Genitourinary Genitourinary Comment(s): Dannielle pad shows scant serosanguineous discharge - Labs CBC & Chem 7: 06/21/20 05:36 Assessment and Plan Assessment: S/P LANETTE, B/L salpingectomy POD#2 (1) Fibroids Current Visit: No Status: Acute Code(s): D21.9 - BENIGN NEOPLASM OF CONNECTIVE AND OTHER SOFT TISSUE, UNSP SNOMED Code(s): 052828036576198 (2) Pelvic pain Current Visit: No Status: Acute Code(s): R10.2 - PELVIC AND PERINEAL PAIN SNOMED Code(s): 44744235 Plan: Will switch to oral pain medication completely today. We will discontinue IV. May shower. Will work on pain control today.
[2020-06-22] MEDS: SENNOSIDES-DOCUSATE SODIUM 1 EACH TAB PO SCH ×2 (08:48→20:55)
[2020-06-22] MEDS: PRENATAL VIT-IRON-FOLIC ACID 1 EACH CAP PO SCH (08:49)
[2020-06-22] MEDS: IBUPROFEN 600 MG TAB PO PRN (11:48)
[2020-06-22] MEDS: LACTATED RINGERS 1,000 ML IV SCH (14:50)
[2020-06-22] MEDS: SERTRALINE 50 MG TAB PO SCH (20:55)
[2020-06-23] MEDS: HYDROcodone/APAP 7.5-325MG 1 EACH TAB PO PRN ×3 (05:14→18:15)
[2020-06-23] MEDS: ACETAMINOPHEN TAB 325 MG TAB PO PRN (05:15)
[2020-06-23] MEDS: SENNOSIDES-DOCUSATE SODIUM 1 EACH TAB PO SCH ×2 (08:01→21:36)
[2020-06-23] MEDS: PRENATAL VIT-IRON-FOLIC ACID 1 EACH CAP PO SCH (08:01)
[2020-06-23] MEDS: IBUPROFEN 600 MG TAB PO PRN ×3 (08:04→22:06)
--- NOTE | 2020-06-23 08:08 | P.DS ---
Providers Date of admission: 06/20/20 05:31 Expected date of discharge: 06/23/20 Attending physician: Yasemin Hagen Primary care physician: Stated None - Discharge Diagnosis(es) (1) Fibroids Current Visit: No Status: Acute (2) Pelvic pain Current Visit: No Status: Acute Hospital Course: This is a 30-year-old female 2 para 2 who underwent a total abdominal hysterectomy with bilateral salpingectomy on 06/20/2020 due to large degenerating fibroid. Postoperatively she has had some pain control issues. She is passing flatus now. She denies any bowel movement yet. She does complain of some gas pain through the night yesterday. Bleeding has been minimal. She is urinating without difficulty. Vital signs are stable. Abdomen is soft with positive active bowel sounds 4. Incision is clean dry and intact with rios in place. Extremities show negative Homans. Impression is status post total abdominal hysterectomy with bilateral salpingectomy postoperative day #3. Plan is to hopefully discharge home later this afternoon. We'll give prescriptions for ibuprofen and Lyle. She is counseled regarding opioid use and has signed a start opioid taking form. Rios will be removed and Steri- Strips placed prior to discharge. She is advised to follow up in the office in 1 week for a postoperative check. Routine postoperative instructions are given. She is advised no driving while on Lyle. No heavy lifting, no intercourse. Procedures: Total abdominal hysterectomy with bilateral salpingectomy on 06/20/2020 Patient Condition at Discharge: Stable Plan - Discharge Summary Discharge Rx Participant: No New Discharge Prescriptions: New Ibuprofen [Motrin] 600 mg PO Q6HR PRN #60 tab PRN Reason: Mild Discomfort HYDROcodone/APAP 7.5-325MG [[place] 7.5-325] 1 each PO Q6H PRN #28 tab PRN Reason: Moderate To Severe Pain Continue [id number]-Bhqg-Mwmnm Acid [-U Capsule (formulary)] 1 cap PO DAILY Sertraline [Zoloft] 50 mg PO HS tab No Action Acetaminophen [Tylenol] 500 mg PO DAILY PRN PRN Reason: Pain HYDROcodone/APAP 5-325MG [[place] 5-325] 1 each PO Q4HR PRN #10 tab PRN Reason: Moderate Pain Discharge Medication List Oss-Pseb-Zdvwd Acid [-U Capsule (formulary)] 1 cap PO DAILY 09/11/17 [History] Acetaminophen [Tylenol] 500 mg PO DAILY PRN 05/31/20 [History] HYDROcodone/APAP 5-325MG [[place] 5-325] 1 each PO Q4HR PRN #10 tab 06/02/20 [Rx] Sertraline [Zoloft] 50 mg PO HS tab 06/02/20 [Rx] HYDROcodone/APAP 7.5-325MG [[place] 7.5-325] 1 each PO Q6H PRN #28 tab 06/23/20 [Rx] Ibuprofen [Motrin] 600 mg PO Q6HR PRN #60 tab 06/23/20 [Rx] Follow up Appointment(s)/Referral(s): Yasemin Hagen DO [Doctor of Osteopathic Medicine] - 1 Week Patient Instructions/Handouts: Pain Management After Surgery (GEN), Hysterectomy (GEN) Activity/Diet/Wound Care/Special Instructions: BREAST MILK IN THE FRIDGE!! Activity as tolerated. Diet as tolerated. May shower, but no tub baths. No intercourse. No driving while on narcotic pain medication. No heavy lifting. Discharge Disposition: HOME SELF-CARE
[2020-06-23] MEDS: SIMETHICONE 80 MG CHEWABLE PO PRN ×2 (09:30→21:36)
[2020-06-23] MEDS ORDERED: bisacodyL 10 MG SUPP RECTAL STA (11:05)
[2020-06-23] MEDS: SERTRALINE 50 MG TAB PO SCH (22:07)
[2020-06-24] MEDS: HYDROcodone/APAP 7.5-325MG 1 EACH TAB PO PRN ×2 (01:50→14:27)
[2020-06-24] MEDS: IBUPROFEN 600 MG TAB PO PRN ×2 (05:16→14:33)
[2020-06-24] MEDS ORDERED: LORazepam 0.5 MG TAB PO PRN (07:07)
[2020-06-24] MEDS ORDERED: ONDANSETRON 4 MG/2 ML VIAL IVP STA (08:30)
[2020-06-24] MEDS ORDERED: LORazepam 2 MG/ML INJ IV STA (08:32)
[2020-06-24 08:38] LABS: Glucose,Whole Blood 130 mg/dL (75-99)
[2020-06-24] MEDS ORDERED: SODIUM CHLORIDE 0.9% 1,000 ML IV SCH (08:45)
[2020-06-24] MEDS: PRENATAL VIT-IRON-FOLIC ACID 1 EACH CAP PO SCH (09:00)
[2020-06-24] MEDS: SENNOSIDES-DOCUSATE SODIUM 1 EACH TAB PO SCH (14:27)
[2020-06-24] MEDS: SIMETHICONE 80 MG CHEWABLE PO PRN (14:27)
[2020-06-24 14:31] VITALS: BP 121/68; PULSE 86; RESP 20; TEMP 98.1
== END 2020-06-24 16:30 | disposition home or self-care (01) | DRG 743 ==
LOC: 2ORMAIN 05:31 → 6PED 08:32
PROVIDERS: ADMIT Obstetrics & Gynecology; ATTEND Obstetrics & Gynecology
PROC: 0UT90ZZ Resection of Uterus, Open Approach (ICD-10-PCS; principal; 2020-06-20 07:00)
PROC: 0UT70ZZ Resection of Bilateral Fallopian Tubes, Open Approach (ICD-10-PCS; principal; 2020-06-20 07:00)
DX: D25.9 Leiomyoma of uterus, unspecified (principal); N72 Inflammatory disease of cervix uteri; F41.9 Anxiety disorder, unspecified; Z98.891 History of uterine scar from previous surgery; Z82.5 Family history of asthma and other chronic lower respiratory diseases; Z88.8 Allergy status to other drugs, medicaments and biological substances
CPT/HCPCS: 81025; 85025; 88307